=== PATIENT | female | born 1955 | race American Indian/Alaskan Native ===

== ENCOUNTER 2016-10-29 11:09 | Outpatient (CLI) | payer OTHER | END 2016-10-29 11:10 | disposition home or self-care (01) | DX: E11.65 Type 2 diabetes mellitus with hyperglycemia (principal) ==

== ENCOUNTER 2016-12-10 13:52 | Outpatient (CLI) | payer OTHER | END 2016-12-10 13:53 | disposition home or self-care (01) | DX: R30.0 Dysuria (principal) ==

== ENCOUNTER 2017-06-28 14:48 | Outpatient (CLI) | payer OTHER ==
[2017-06-28 13:19] LABS: BASOPHILS % (AUTO) 0.3 %; EOSINOPHILS # (AUTO) 0.3 10^3/uL (0.0-0.7); HCT - HEMATOCRIT 41.1 % (37.0-47.0); HGB - HEMOGLOBIN 13.5 g/dL (12.0-16.0); LYMPHOCYTES # (AUTO) 2.2 10^3/uL (1.5-3.5); MEAN CORPUSCULAR HEMOGLOBIN 30.3 pg (27.0-31.0); MEAN CORPUSCULAR HGB CONC 32.8 g/dL (32.0-36.0); MEAN CORPUSCULAR VOLUME 92.3 fL (81.0-99.0); MEAN PLATELET VOLUME 9.8 fL (7.9-10.8); MONOCYTES # (AUTO) 0.7 10^3/uL (0.0-1.0); NEUTROPHILS # (AUTO) 7.1 10^3/uL (1.5-6.6); NEUTROPHILS % (AUTO) 68.7 %; RED BLOOD COUNT 4.45 10^6/uL (4.20-5.40); RED CELL DISTRIBUTION WIDTH 13.1 % (12.0-15.0); UNCORRECTED WHITE BLOOD COUNT 10.3 x10^3/uL; WHITE BLOOD COUNT 10.3 x10^3/uL (4.8-10.8)
[2017-06-28 13:49] LABS: BILIRUBIN,TOTAL 0.9 mg/dL (0.2-1.0); BUN - BLOOD UREA NITROGEN 14 mg/dL (6-20); CALCIUM 8.7 mg/dL (8.5-10.3); CARBON DIOXIDE - CO2 24 mmol/L (21-32); CHLORIDE 102 mmol/L (101-111); CHOL/HDL RATIO 2.6 (<4.4); CHOLESTEROL 188 mg/dL; CREATININE 0.6 mg/dL (0.4-1.0); GFR - MDRD 102 (>89); GLUCOSE 287 mg/dL (70-100); HDL CHOLESTEROL 72 mg/dL; LDL/HDL RATIO 1.3 (<4.4); POTASSIUM 4.1 mmol/L (3.5-5.0); SODIUM 135 mmol/L (135-145); TOTAL PROTEIN 7.1 g/dL (6.7-8.2); TRIGLYCERIDES 131 mg/dL; VLDL CHOLESTEROL 26 mg/dL
[2017-06-28 14:08] LABS: HEMOGLOBIN A1C 1.52 g/dL
== END 2017-06-28 14:49 | disposition home or self-care (01) ==
LOC: LAB.WCP 14:48
PROVIDERS: ATTEND Family Medicine
DX: R30.0 Dysuria (principal); E11.65 Type 2 diabetes mellitus with hyperglycemia
CPT/HCPCS: 36415; 80053; 80061; 83036; 84443; 85025; 87077; 87086

== ENCOUNTER 2017-06-28 16:00 | Outpatient (CLI) | payer OTHER | END 2017-06-28 16:01 | disposition home or self-care (01) | LOC: LAB.R 16:00 | PROVIDERS: ATTEND Family Medicine | DX: R30.0 Dysuria (principal) | CPT/HCPCS: 87077; 87086 ==

== ENCOUNTER 2017-10-31 06:24 | Day surgery (SDC) | payer OTHER ==
[2017-10-31] MEDS ORDERED: LACTATED RINGERS 500 ML IV ONE (07:03)
[2017-10-31] MEDS ORDERED: KETOROLAC 0.45% OPHTH DROPS ONE (07:07)
[2017-10-31] MEDS ORDERED: PROPARACAINE 0.5% OPHTH DROPS 15 ML ONE (07:07)
[2017-10-31] MEDS: PHENYLEPHRINE 2.5% OPHTH 2 ML DROPS ONE ×4 (07:15→07:40)
[2017-10-31] MEDS: CYCLOPENTOLATE 1% OPHTH DROPS 2 ML ONE ×4 (07:15→07:40)
[2017-10-31] MEDS ORDERED: TIMOLOL 0.5% OPHTH DROPS ONE (07:17)
[2017-10-31] MEDS ORDERED: BRIMONIDINE 0.2% OPHTH DROPS 5 ML ONE (07:17)
[2017-10-31] MEDS ORDERED: MIDAZOLAM 2 MG/2 ML VIAL IVP ONE (08:41)
[2017-10-31] MEDS ORDERED: BRIMONIDINE 0.2% OPHTH DROPS 5 ML OPTH ONE (08:47)
[2017-10-31] MEDS ORDERED: TIMOLOL 0.5% OPHTH DROPS OPTH ONE (08:48)
[2017-10-31] MEDS ORDERED: BSS/LIDOCAINE/EPINEPHRINE 1 ML SYRINGE IO ONE (08:48)
[2017-10-31] MEDS ORDERED: EPINEPHrine 1 MG/ML AMP IVP ONE (08:48)
[2017-10-31] MEDS ORDERED: CHONDR SULF/HYALURONATE SYRINGE IO ONE (08:48)
[2017-10-31] MEDS ORDERED: PROPARACAINE 0.5% OPHTH DROPS 15 ML LEFTEYE ONE (08:49)
[2017-10-31] MEDS ORDERED: TRIAMCIN/MOXIFLOX/VANCO 1 ML VIAL IO ONE (08:49)
[2017-10-31 09:11] VITALS: BP 129/83
--- NOTE | 2017-10-31 09:21 | OPERATIVE REPORT ---
DATE OF SERVICE: 10/31/2017 Physician: Joseph Sommre MD DATE OF SURGERY: 10/31/2017 PREOPERATIVE DIAGNOSIS: Visually significant cataract, left eye. This was her first cataract surgery. POSTOPERATIVE DIAGNOSIS: Visually significant cataract, left eye. This was her first cataract surgery. NAME OF PROCEDURE: Phacoemulsification with posterior chamber intraocular lens implant, left eye. SURGEON: Joseph Sommer MD ANESTHESIA: Monitored anesthesia care. COMPLICATIONS: None. OPERATIVE INDICATIONS: This is a 62-year-old woman with progressive vision loss in the left eye due to 2+ nuclear sclerotic cataract. Best corrected visual acuity was 20/20 with glare to count fingers in the left eye. INDICATIONS FOR SURGERY: Overall decrease in vision, difficulty seeing words on the computer screen, difficulty reading; difficulty seeing words, closed caption or game scores on TV; difficulty seeing street signs, difficulty driving in low light or at night, difficulty driving at night because of headlight from other vehicles and/or street lights, and difficulty with glare or bright lights in any situation. She was consented at length concerning risks and benefits of cataract surgery, after which she expressed a desire to proceed with surgery. OPERATIVE PROCEDURE: The patient was taken into OR #3 and placed under monitored anesthesia care. A surgical timeout was conducted confirming correct patient, correct procedure, and correct surgical site. She was given topical anesthesia, and then prepped and draped in the usual sterile fashion. The eye was entered at the 6 and 3 o'clock positions. Intracameral Shugarcaine was injected into the anterior chamber, followed by Viscoat. A continuous-tear curvilinear capsulorrhexis was performed. The nucleus was hydrodissected and phacoemulsified. The cortex was evacuated using automated infusion and aspiration. Provisc was injected in the capsular bag, and a 21.0 diopter intraocular lens was inserted in the bag Approximately 0.7 mL of a mixture of triamcinolone, moxifloxacin, vancomycin was injected subconjunctivally in the superior quadrant for infection and inflammation prophylaxis. I and A, was used to evacuate the viscoelastic materials. The eye was inflated to physiologic pressure using balanced salt solution and found to be watertight. The patient was taken from the operating room in good condition and given postoperative instructions. TD: 10/31/2017 09:20
== END 2017-10-31 06:25 | disposition home or self-care (01) ==
LOC: SDS 06:24
PROVIDERS: ATTEND Ophthalmology
PROC: 08RK3JZ Replacement of Left Lens with Synthetic Substitute, Percutaneous Approach (ICD-10-PCS; principal; 2017-10-31 08:30)
DX: H25.12 Age-related nuclear cataract, left eye (principal); E11.9 Type 2 diabetes mellitus without complications; Z79.4 Long term (current) use of insulin
CPT/HCPCS: 66984; A9270; J3490; V2632

== ENCOUNTER 2017-11-14 05:53 | Day surgery (SDC) | payer OTHER ==
[2017-11-14] MEDS ORDERED: PHENYLEPHRINE 2.5% OPHTH 2 ML DROPS ONE (06:30)
[2017-11-14] MEDS ORDERED: CYCLOPENTOLATE 1% OPHTH DROPS 2 ML ONE (06:30)
[2017-11-14] MEDS ORDERED: KETOROLAC 0.45% OPHTH DROPS ONE (06:30)
[2017-11-14] MEDS ORDERED: PROPARACAINE 0.5% OPHTH DROPS 15 ML ONE ×3 (06:31→07:18)
[2017-11-14] MEDS ORDERED: KETOROLAC 0.45% OPHTH DROPS RIGHTEYE ONE (06:40)
[2017-11-14] MEDS ORDERED: PHENYLEPHRINE 2.5% OPHTH 2 ML DROPS RIGHTEYE ONE (06:40)
[2017-11-14] MEDS ORDERED: PROPARACAINE 0.5% OPHTH DROPS 15 ML RIGHTEYE ONE ×2 (06:40→07:42)
[2017-11-14] MEDS ORDERED: CYCLOPENTOLATE 1% OPHTH DROPS 2 ML RIGHTEYE ONE (06:40)
[2017-11-14] MEDS ORDERED: LACTATED RINGERS 1,000 ML IV ONE (06:51)
[2017-11-14] MEDS ORDERED: BRIMONIDINE 0.2% OPHTH DROPS 5 ML ONE (07:06)
[2017-11-14] MEDS ORDERED: BRIMONIDINE 0.1% OPHTH DROPS 5 ML ONE (07:06)
[2017-11-14] MEDS ORDERED: TIMOLOL 0.5% OPHTH DROPS ONE (07:07)
[2017-11-14] MEDS ORDERED: MIDAZOLAM 10 MG/2 ML VIAL IVP ONE (07:30)
[2017-11-14] MEDS ORDERED: MIDAZOLAM 2 MG/2 ML VIAL IVP ONE (07:30)
[2017-11-14] MEDS ORDERED: BRIMONIDINE 0.2% OPHTH DROPS 5 ML OPTH ONE (07:40)
[2017-11-14] MEDS ORDERED: EPINEPHrine 1 MG/ML AMP IVP ONE (07:40)
[2017-11-14] MEDS ORDERED: BSS/LIDOCAINE/EPINEPHRINE 1 ML SYRINGE IO ONE ×2 (07:41)
[2017-11-14] MEDS ORDERED: CHONDR SULF/HYALURONATE SYRINGE IO ONE (07:41)
[2017-11-14] MEDS ORDERED: TIMOLOL 0.5% OPHTH DROPS OPTH ONE (07:41)
[2017-11-14] MEDS ORDERED: TRIAMCIN/MOXIFLOX/VANCO 1 ML VIAL IO ONE ×2 (07:42)
[2017-11-14 07:54] VITALS: BP 136/93
--- NOTE | 2017-11-14 08:30 | OPERATIVE REPORT ---
DATE OF SERVICE: 11/14/2017 Physician: Joseph Sommer MD DATE OF SURGERY: 11/14/2017 PREOPERATIVE DIAGNOSIS: Visually significant cataract, right eye. Cataract surgery was performed on the left eye on 10/31/2017. POSTOPERATIVE DIAGNOSIS: Visually significant cataract, right eye. Cataract surgery was performed on the left eye on 10/31/2017. NAME OF PROCEDURE: Phacoemulsification with posterior chamber intraocular lens implant, right eye. SURGEON: Joseph Sommer MD ANESTHESIA: Monitored anesthesia care. COMPLICATIONS: None. OPERATIVE INDICATIONS: This is a 62-year-old woman with progressive vision loss in the right eye due to 2+ nuclear sclerotic cataract. Best corrected visual acuity was 20/ 25 with count fingers with glare. INDICATIONS FOR SURGERY: Overall decrease in vision, difficulty reading; difficulty seeing words, closed caption games scores on TV; difficulty driving in low light or at night and difficulty with glare or bright lights in any situation. She was consented at length concerning risks and benefits of cataract surgery, after which she expressed a desire to proceed with surgery. OPERATIVE PROCEDURE: The patient was taken into OR #3 and placed under monitored anesthesia care. A surgical timeout was conducted confirming correct patient, correct procedure, and correct surgical site. She was given topical anesthesia, and prepped and draped in usual sterile fashion. The eye was entered at the 12 and 9 o'clock positions. Intracameral Shugarcaine was injected into the anterior chamber, followed by Viscoat. A continuous-tear curvilinear capsulorrhexis was performed. The nucleus was hydrodissected and phacoemulsified. The cortex was evacuated using automated infusion and aspiration (I&A). Provisc was injected in the capsular bag, and a 21.5 diopter intraocular lens was inserted in the bag. Approximately 0.8 mL of a mixture of triamcinolone, moxifloxacin, vancomycin was injected subconjunctivally in the superior quadrant for infection and inflammation prophylaxis. I&A was used to evacuate the viscoelastic materials. The eye was inflated to physiologic pressure using a balanced salt solution and found to be watertight. The patient was taken from the operating room in good condition and given postoperative instructions. TD: 11/14/2017 08:29 [facility]
== END 2017-11-14 05:54 | disposition home or self-care (01) ==
LOC: SDS 05:53
PROVIDERS: ATTEND Ophthalmology
PROC: 08RJ3JZ Replacement of Right Lens with Synthetic Substitute, Percutaneous Approach (ICD-10-PCS; principal; 2017-11-14 07:30)
DX: H25.11 Age-related nuclear cataract, right eye (principal); E11.9 Type 2 diabetes mellitus without complications
CPT/HCPCS: 66984; A9270; J3490; J7120; V2632

== ENCOUNTER 2018-03-14 15:32 | Outpatient (CLI) | payer OTHER ==
--- NOTE | 2018-03-17 15:58 | Mammography Report ---
Procedure Date: 03/14/2018 Accession Number: [id number] / [id number] Procedure: [facility] - Screening Mammo Dig Bilat CPT Code: FULL RESULT: EXAM: Screening Mammo Dig Bilat DATE: 03/14/2018 3:48 PM CLINICAL HISTORY: Mother with breast cancer. TECHNIQUE: Bilateral CC and MLO views were obtained. COMPARISON: 03/07/1716, 11/07/2012, 11/20/2011, and 01/20/2009. FINDINGS: There are scattered fibroglandular densities. 3 new calcifications are seen in the upper outer mid to posterior third of the right breast. No new microcalcifications on the left. No suspicious masses, skin thickening, or regions of architectural distortion are identified. IMPRESSION: New microcalcifications right breast for which magnification views are suggested. Negative left breast. RECOMMENDATION: Magnification views right breast. BIRADS CATEGORY BI-RADS 0 needs additional evaluation. STANDARD QUALIFYING STATEMENTS: 1. This examination was reviewed with the aid of Computer-Aided Detection (CAD). 2. A negative or benign imaging report should not delay biopsy if clinically suspicious findings are present. Consider surgical consultation if warrented. More than 5% of cancers are not identified by imaging. 3. Dense breasts may obscure an underlying neoplasm.
== END 2018-03-14 15:33 | disposition home or self-care (01) ==
LOC: DI 15:32
PROVIDERS: ATTEND Family Medicine
DX: Z12.31 Encounter for screening mammogram for malignant neoplasm of breast (principal); R92.0 Mammographic microcalcification found on diagnostic imaging of breast
CPT/HCPCS: 77067

== ENCOUNTER 2018-04-09 09:28 | Outpatient (CLI) | payer OTHER ==
--- NOTE | 2018-04-09 11:31 | Mammography Report ---
Procedure Date: 04/09/2018 Accession Number: [id number] / [id number] Procedure: [facility] - Diag Special Views Dig RT CPT Code: FULL RESULT: EXAM: Diag Special Views Dig RT DATE: 04/09/2018 10:00 AM CLINICAL HISTORY: Right breast calcifications TECHNIQUE: Right true lateral and spot magnification views COMPARISON: 03/14/2018, 05/16/2016, 11/07/2012, 11/20/2011 FINDINGS: The breasts demonstrate scattered fibroglandular densities bilaterally. The calcifications in question are predominantly coarse on spot magnification views, and appears similar to other calcifications in the right breast. IMPRESSION: Probable benign findings RECOMMENDATION: Diagnostic right mammogram in 6 months BIRADS CATEGORY 3: Probable benign findings STANDARD QUALIFYING STATEMENTS: 1. This examination was reviewed with the aid of Computer-Aided Detection (CAD). 2. A negative or benign imaging report should not delay biopsy if clinically suspicious findings are present. Consider surgical consultation if warrented. More than 5% of cancers are not identified by imaging. 3. Dense breasts may obscure an underlying neoplasm.
== END 2018-04-09 09:29 | disposition home or self-care (01) ==
LOC: DI 09:28
PROVIDERS: ATTEND Family Medicine
DX: R92.1 Mammographic calcification found on diagnostic imaging of breast (principal)

== ENCOUNTER 2018-06-06 09:50 | Outpatient (CLI) | payer OTHER ==
[2018-06-06 12:11] LABS: BASOPHILS % (AUTO) 0.1 %; EOSINOPHILS # (AUTO) 0.2 10^3/uL (0.0-0.7); HGB - HEMOGLOBIN 13.8 g/dL (12.0-16.0); LYMPHOCYTES # (AUTO) 1.3 10^3/uL (1.5-3.5); LYMPHOCYTES % (AUTO) 13.8 %; MEAN CORPUSCULAR HEMOGLOBIN 31.2 pg (27.0-31.0); MEAN CORPUSCULAR HGB CONC 33.3 g/dL (32.0-36.0); MEAN CORPUSCULAR VOLUME 93.8 fL (81.0-99.0); MEAN PLATELET VOLUME 9.5 fL (7.9-10.8); MONOCYTES # (AUTO) 0.6 10^3/uL (0.0-1.0); MONOCYTES % (AUTO) 6.6 %; NEUTROPHILS % (AUTO) 77.5 %; PLT - PLATELET COUNT 248 10^3/uL (130-450); RED BLOOD COUNT 4.43 10^6/uL (4.20-5.40); RED CELL DISTRIBUTION WIDTH 13.1 % (12.0-15.0); WHITE BLOOD COUNT 9.1 x10^3/uL (4.8-10.8)
[2018-06-06 12:35] LABS: ALBUMIN 4.1 g/dL (3.2-5.5); ALBUMIN/GLOBULIN RATIO 1.2 (1.0-2.2); ALKALINE PHOSPHATASE 84 IU/L (42-121); ALT ALANINE AMINOTRANSFERASE 28 IU/L (10-60); AST ASPARTATE AMINOTRANSFERASE 28 IU/L (10-42); BILIRUBIN,TOTAL 0.8 mg/dL (0.2-1.0); BUN - BLOOD UREA NITROGEN 20 mg/dL (6-20); CALCIUM 9.1 mg/dL (8.5-10.3); CARBON DIOXIDE - CO2 23 mmol/L (21-32); CHLORIDE 103 mmol/L (101-111); CHOL/HDL RATIO 2.9 (<4.4); CHOLESTEROL 235 mg/dL; CREATININE 0.9 mg/dL (0.4-1.0); GFR - MDRD 63 (>89); GLUCOSE 303 mg/dL (70-100); HDL CHOLESTEROL 80 mg/dL; LDL CHOLESTEROL,CALCULATED 106 mg/dL; LDL/HDL RATIO 1.3 (<4.4); SODIUM 136 mmol/L (135-145); TOTAL PROTEIN 7.4 g/dL (6.7-8.2); VLDL CHOLESTEROL 49 mg/dL
[2018-06-06 18:35] LABS: HB2 TOTAL 14.6 g/dL; HEMOGLOBIN A1C 1.04 g/dL; HEMOGLOBIN A1C % 8.7 % (4.6-6.2)
== END 2018-06-06 09:51 | disposition home or self-care (01) ==
LOC: LAB.WCP 09:50
PROVIDERS: ATTEND Family Medicine
DX: E11.65 Type 2 diabetes mellitus with hyperglycemia (principal)
CPT/HCPCS: 36415; 80053; 80061; 82043; 83036; 83721; 84443; 85025

== ENCOUNTER 2018-12-10 11:22 | Outpatient (CLI) | payer OTHER ==
[2018-12-10 19:14] LABS: BASOPHILS % (AUTO) 0.3 %; EOSINOPHILS # (AUTO) 0.1 10^3/uL (0.0-0.7); EOSINOPHILS % (AUTO) 1.6 %; HGB - HEMOGLOBIN 13.3 g/dL (12.0-16.0); LYMPHOCYTES # (AUTO) 1.5 10^3/uL (1.5-3.5); LYMPHOCYTES % (AUTO) 17.9 %; MEAN CORPUSCULAR HEMOGLOBIN 30.1 pg (27.0-31.0); MEAN CORPUSCULAR HGB CONC 31.8 g/dL (32.0-36.0); MEAN CORPUSCULAR VOLUME 94.8 fL (81.0-99.0); MEAN PLATELET VOLUME 9.5 fL (7.9-10.8); MONOCYTES # (AUTO) 0.5 10^3/uL (0.0-1.0); MONOCYTES % (AUTO) 6.3 %; NEUTROPHILS # (AUTO) 6.3 10^3/uL (1.5-6.6); NEUTROPHILS % (AUTO) 73.9 %; PLT - PLATELET COUNT 236 10^3/uL (130-450); RED BLOOD COUNT 4.42 10^6/uL (4.20-5.40); RED CELL DISTRIBUTION WIDTH 13.4 % (12.0-15.0); WHITE BLOOD COUNT 8.5 x10^3/uL (4.8-10.8)
[2018-12-10 19:16] LABS: ALBUMIN 4.1 g/dL (3.2-5.5); ALBUMIN/GLOBULIN RATIO 1.2 (1.0-2.2); ALKALINE PHOSPHATASE 77 IU/L (42-121); ALT ALANINE AMINOTRANSFERASE 28 IU/L (10-60); AST ASPARTATE AMINOTRANSFERASE 22 IU/L (10-42); BILIRUBIN,TOTAL 0.9 mg/dL (0.2-1.0); BUN - BLOOD UREA NITROGEN 18 mg/dL (6-20); CARBON DIOXIDE - CO2 24 mmol/L (21-32); CHLORIDE 106 mmol/L (101-111); CHOL/HDL RATIO 1.8 (<4.4); CHOLESTEROL 160 mg/dL; CREATININE 0.6 mg/dL (0.4-1.0); GFR - MDRD 101 (>89); GLUCOSE 209 mg/dL (70-100); HDL CHOLESTEROL 87 mg/dL; LDL CHOLESTEROL,CALCULATED 44 mg/dL; LDL/HDL RATIO 0.5 (<4.4); SODIUM 139 mmol/L (135-145); TOTAL PROTEIN 7.4 g/dL (6.7-8.2); VLDL CHOLESTEROL 29 mg/dL
[2018-12-10 19:18] LABS: HB2 TOTAL 14.9 g/dL; HEMOGLOBIN A1C 1.06 g/dL; HEMOGLOBIN A1C % 8.7 % (4.6-6.2)
[2018-12-10 20:03] LABS: CREATININE,URINE 152.3 mg/dL; MICROALBUM/CREATININE RATIO,UR 120.8 ug/mg (<30.0); MICROALBUMIN,URINE 18.4 mg/dL (0-300.0)
== END 2018-12-10 11:23 | disposition home or self-care (01) ==
LOC: LAB.WCP 11:22
PROVIDERS: ATTEND Family Medicine
DX: E11.8 Type 2 diabetes mellitus with unspecified complications (principal)
CPT/HCPCS: 36415; 80053; 80061; 82043; 82570; 83036; 83721; 85025

== ENCOUNTER 2018-12-23 09:34 | Outpatient (CLI) | payer OTHER ==
--- NOTE | 2018-12-23 13:09 | Mammography Report ---
Reason: 6 MO F/U - [facility] Procedure Date: 12/23/2018 Accession Number: [id number] / [id number] Procedure: [facility] - Diagnostic Dig RT CPT Code: FULL RESULT: EXAM: Diagnostic Dig RT DATE: 12/23/2018 10:25 AM CLINICAL HISTORY: Six-month follow-up imaging for a grouping of right breast calcifications. TECHNIQUE: Right breast CC and MLO images as well as ML images and magnified CC and magnified ML images are obtained. COMPARISON: 04/09/2018 through 11/07/2012. FINDINGS: The right breast demonstrates scattered fibroglandular densities. The predominantly coarse calcifications on spot magnification demonstrate probably benign interval evolution and increase in quantity. No suspicious mass or architectural distortion is identified on 2-D or 3-D imaging. IMPRESSION: Probable benign findings RECOMMENDATION: Recommend diagnostic right mammogram in 6 months. BIRADS CATEGORY 3 STANDARD QUALIFYING STATEMENTS: 1. This examination was not reviewed with the aid of Computer-Aided Detection (CAD). 2. A negative or benign imaging report should not delay biopsy if clinically suspicious findings are present. Consider surgical consultation if warrented. More than 5% of cancers are not identified by imaging. 3. Dense breasts may obscure an underlying neoplasm. 4. This examination was reviewed with the aid of 3D imaging (tomography).
== END 2018-12-23 09:35 | disposition home or self-care (01) ==
LOC: DI 09:34
PROVIDERS: ATTEND Family Medicine
DX: R92.8 Other abnormal and inconclusive findings on diagnostic imaging of breast (principal)

== ENCOUNTER 2019-02-11 09:09 | Outpatient (CLI) | payer OTHER | END 2019-02-11 09:10 | disposition home or self-care (01) | LOC: LAB.WCP 09:09 | PROVIDERS: ATTEND Family Medicine | DX: R22.1 Localized swelling, mass and lump, neck (principal) | CPT/HCPCS: 36415; 84443 ==

== ENCOUNTER 2019-03-12 08:09 | Outpatient (CLI) | payer OTHER | END 2019-03-12 08:10 | disposition home or self-care (01) | LOC: LAB.WCP 08:09 | PROVIDERS: ATTEND Family Medicine | DX: E11.8 Type 2 diabetes mellitus with unspecified complications (principal) | CPT/HCPCS: 81599; 83036 ==

== ENCOUNTER 2019-06-08 08:00 | Outpatient (CLI) | payer OTHER ==
[2019-06-08 12:23] LABS: ALBUMIN 4.2 g/dL (3.2-5.5); ALBUMIN/GLOBULIN RATIO 1.2 (1.0-2.2); BILIRUBIN,TOTAL 0.5 mg/dL (0.2-1.0); CALCIUM 9.9 mg/dL (8.5-10.3); CREATININE 0.7 mg/dL (0.4-1.0); TOTAL PROTEIN 7.8 g/dL (6.7-8.2)
[2019-06-08 12:59] LABS: HB2 TOTAL 14.6 g/dL; HEMOGLOBIN A1C 0.95 g/dL; HEMOGLOBIN A1C % 8.1 % (4.6-6.2)
[2019-06-09 11:08] LABS: HEPATITIS C ANTIBODY NON-REACTIVE (NON-REACTIVE)
== END 2019-06-08 23:59 | disposition home or self-care (01) ==
LOC: LAB.WCP 08:00
PROVIDERS: ATTEND Family Medicine
DX: Z11.59 Encounter for screening for other viral diseases (principal); E11.65 Type 2 diabetes mellitus with hyperglycemia
CPT/HCPCS: 36415; 80053; 83036; 86803

== ENCOUNTER 2019-06-17 10:42 | Outpatient (CLI) | payer OTHER ==
--- NOTE | 2019-06-17 13:41 | Mammography Report ---
Reason: 6 MONTH FOLLOW UP RIGHT BREAST/ ANNUAL Procedure Date: 06/17/2019 Accession Number: [id number] / [id number] Procedure: [facility] - Diagnostic Dig Bilat CPT Code: FULL RESULT: EXAM: Diagnostic Dig Bilat DATE: 06/17/2019 12:10 PM CLINICAL HISTORY: Follow-up calcifications right breast, screening left breast TECHNIQUE: (B) - Bilateral CC and MLO views were obtained. COMPARISON: 12/23/2018, 04/09/2018, 03/14/2018 and 05/16/2016 PARENCHYMAL PATTERN: (A) - The breasts demonstrate scattered fibroglandular densities bilaterally. FINDINGS: No significant interval change. On the right 3 groups of coarse calcifications appear similar to both 12/23/2018 and 04/09/2018. One of these clusters is dermal in location. There are no suspicious masses, skin thickening, new calcifications, or areas of distortion. IMPRESSION: Benign findings. BI-RADS category 2. RECOMMENDATION: (ANNUAL) - Recommend routine annual screening mammography. BI-RADS CATEGORY: (2) - Benign Findings. STANDARD QUALIFYING STATEMENTS: 1. This examination was not reviewed with the aid of Computer-Aided Detection (CAD). 2. A negative or benign imaging report should not preclude biopsy if clinically suspicious findings are present. 3. Dense breasts may obscure an underlying neoplasm. 4. This examination was reviewed without the aid of 3D breast imaging (tomosynthesis).
== END 2019-06-17 10:43 | disposition home or self-care (01) ==
LOC: DI 10:42
PROVIDERS: ATTEND Family Medicine
DX: R92.8 Other abnormal and inconclusive findings on diagnostic imaging of breast (principal)
CPT/HCPCS: 77066

== ENCOUNTER 2019-09-15 09:55 | Outpatient (CLI) | payer OTHER ==
[2019-09-15 14:45] LABS: ALBUMIN/GLOBULIN RATIO 1.1 (1.0-2.2); BILIRUBIN,TOTAL 0.8 mg/dL (0.2-1.0); CALCIUM 9.1 mg/dL (8.5-10.3); CREATININE 0.7 mg/dL (0.4-1.0); TOTAL PROTEIN 7.8 g/dL (6.7-8.2)
[2019-09-15 14:52] LABS: HB2 TOTAL 13.7 g/dL; HEMOGLOBIN A1C 1.06 g/dL; HEMOGLOBIN A1C % 9.2 % (4.6-6.2)
== END 2019-09-15 23:59 ==
LOC: LAB.WCP 09:55
PROVIDERS: ATTEND Family Medicine
DX: E11.65 Type 2 diabetes mellitus with hyperglycemia (principal)
CPT/HCPCS: 36415; 80053; 83036

== ENCOUNTER 2019-10-07 20:06 | Emergency (ER) | payer OTHER ==
[2019-10-07] MEDS ORDERED: TETANUS/DIPHTHERIA/PERTUSSIS 0.5 ML SYRINGE IM ONE (20:13)
--- NOTE | 2019-10-07 20:16 | ED Physician Documentation ---
PD HPI WOUND RECHECK - Stated complaint Stated Complaint: FOOT INJURY - Chief complaint Chief Complaint: Wound - Histroy obtained from History obtained from: Patient - History of Present Illness Location: Right Lower Extremity (She stepped on a clean finishing nail indoors just prior to arrival while barefooted in her kitchen. Mostly here wanting a tetanus shot.) Review of Systems Constitutional: reports: Reviewed and negative Cardiac: reports: Reviewed and negative Respiratory: reports: Reviewed and negative PD PAST MEDICAL HISTORY - Past Medical History Cardiovascular: None Respiratory: None Endocrine/Autoimmune: Type 2 diabetes GI: None : None HEENT: None Psych: None Musculoskeletal: Other Derm: None - Past Surgical History General: Colonoscopy /[employer] PLASTERING: Hysterectomy HEENT: Cataracts - Present Medications Home Medications: Ambulatory Orders Medication Instructions Recorded Confirmed HYDROcod/ACETAM 5/325 [Vicodin 1 - 2 ea PO Q6H PRN 04/08/15 11/14/17 5/325] Insulin Glargine [Lantus Solostar] 12 unit SQ QPM 04/08/15 11/14/17 Insulin Lispro [Humalog Kwikpen] 12 unit SQ TIDWM 04/08/15 11/14/17 - Allergies Allergies/Adverse Reactions: Allergies Allergy/AdvReac Type Severity Reaction Status Date / Time metformin AdvReac Nausea Verified 10/07/19 20:09 - Social History Smoking Status: Former smoker PD ED PE NORMAL - Vitals Vital signs reviewed: Yes (htn) - General General: Alert and oriented X 3, No acute distress - Derm Derm: Normal color, Warm and dry - Neuro Neuro: Alert and oriented X 3, Normal speech - Psych Psych: Normal mood, Normal affect PD ED PE EXPANDED - Extremities Feet visual: 1 - laceration (Nontender tiny puncture wound, hemostatic) Results - Vitals Vitals: Vital Signs - 24 hr 10/07/19 20:09 Temperature 36.5 C Heart Rate 100 Respiratory 16 Rate Blood Pressure 172/84 H O2 Saturation 96 Oxygen O2 Source Room air Departure - Departure Disposition: 01 Home, Self Care Clinical Impression: Puncture wound of plantar aspect of foot Qualifiers: Encounter type: initial encounter Laterality: right Qualified Code(s): S91.331A - Puncture wound without foreign body, right foot, initial encounter Condition: Good Record reviewed to determine appropriate education?: Yes Instructions: ED Wound Puncture General Comments: Your blood pressure was elevated today on check into the emergency department. This does not mean that you have hypertension, it is a common phenomenon to come to the emergency department and have elevated blood pressure. I recommend that you see your primary care physician within the week to have it rechecked when you are feeling better.
[2019-10-07 20:46] VITALS: BP 146/86
== END 2019-10-07 20:46 | disposition home or self-care (01) ==
LOC: ED 20:06
DX: S91.331A Puncture wound without foreign body, right foot, initial encounter (principal); W45.0XXA Nail entering through skin, initial encounter; W22.8XXA Striking against or struck by other objects, initial encounter; Y92.000 Kitchen of unspecified non-institutional (private) residence as the place of occurrence of the external cause; Z23 Encounter for immunization; R03.0 Elevated blood-pressure reading, without diagnosis of hypertension; E11.9 Type 2 diabetes mellitus without complications; Z79.4 Long term (current) use of insulin; Z87.891 Personal history of nicotine dependence
CPT/HCPCS: 90471; 99282

== ENCOUNTER 2019-12-14 08:05 | Outpatient (CLI) | payer OTHER ==
[2019-12-14 08:01] LABS: MUDS CUTOFF CONCENTRATIONS CUTOFF CONC BELOW:
[2019-12-14 12:54] LABS: HB2 TOTAL 14.1 g/dL; HEMOGLOBIN A1C 0.86 g/dL; HEMOGLOBIN A1C % 7.7 % (4.6-6.2)
[2019-12-14 12:59] LABS: ALBUMIN 3.7 g/dL (3.2-5.5); ALKALINE PHOSPHATASE 93 IU/L (42-121); ALT ALANINE AMINOTRANSFERASE 21 IU/L (10-60); AST ASPARTATE AMINOTRANSFERASE 16 IU/L (10-42); BILIRUBIN,TOTAL 0.5 mg/dL (0.2-1.0); BUN - BLOOD UREA NITROGEN 22 mg/dL (6-20); CALCIUM 9.2 mg/dL (8.5-10.3); CARBON DIOXIDE - CO2 23 mmol/L (21-32); CHLORIDE 107 mmol/L (101-111); CHOL/HDL RATIO 2.4 (<4.4); CHOLESTEROL 207 mg/dL; CREATININE 0.6 mg/dL (0.4-1.0); GFR - MDRD 101 (>89); GLUCOSE 172 mg/dL (70-100); HDL CHOLESTEROL 87 mg/dL; LDL CHOLESTEROL,CALCULATED 93 mg/dL; LDL/HDL RATIO 1.1 (<4.4); SODIUM 140 mmol/L (135-145); TOTAL PROTEIN 7.4 g/dL (6.7-8.2); VLDL CHOLESTEROL 27 mg/dL
[2019-12-14 13:29] LABS: AMPHETAMINE SCREEN,URINE NEGATIVE (NEGATIVE); BENZODIAZEPINES SCREEN, URINE NEGATIVE (NEGATIVE); COCAINE SCREEN URINE NEGATIVE (NEGATIVE); METHADONE SCREEN, URINE NEGATIVE (NEGATIVE); METHAMPHETAMINES SCREEN, URINE NEGATIVE (NEGATIVE); OPIATE SCREEN, URINE NEGATIVE (NEGATIVE); OXYCODONE SCREEN, URINE NEGATIVE (NEGATIVE); PROPOXYPHENE SCREEN, URINE NEGATIVE (NEGATIVE); TRICYCLIC ANTIDEPRESSANT,URINE NEGATIVE (NEGATIVE)
== END 2019-12-14 23:59 | disposition home or self-care (01) ==
LOC: LAB.WCP 08:05
PROVIDERS: ATTEND Family Medicine
DX: E11.65 Type 2 diabetes mellitus with hyperglycemia (principal); Z79.891 Long term (current) use of opiate analgesic
CPT/HCPCS: 36415; 80053; 80061; 80306; 83036; 83721

== ENCOUNTER 2020-03-18 11:15 | Outpatient (CLI) | payer OTHER ==
[2020-03-18 18:04] LABS: BASOPHILS % (AUTO) 0.4 %; EOSINOPHILS # (AUTO) 0.2 10^3/uL (0.0-0.7); EOSINOPHILS % (AUTO) 2.2 %; HGB - HEMOGLOBIN 13.1 g/dL (12.0-16.0); LYMPHOCYTES # (AUTO) 1.6 10^3/uL (1.5-3.5); LYMPHOCYTES % (AUTO) 15.3 %; MEAN CORPUSCULAR HEMOGLOBIN 30.5 pg (27.0-31.0); MEAN CORPUSCULAR HGB CONC 31.8 g/dL (32.0-36.0); MEAN PLATELET VOLUME 11.8 fL (7.9-10.8); MONOCYTES % (AUTO) 9.6 %; NEUTROPHILS # (AUTO) 7.4 10^3/uL (1.5-6.6); PLT - PLATELET COUNT 192 10^3/uL (130-450); RED BLOOD COUNT 4.29 10^6/uL (4.20-5.40); RED CELL DISTRIBUTION WIDTH 13.2 % (12.0-15.0); WHITE BLOOD COUNT 10.3 x10^3/uL (4.8-10.8)
[2020-03-18 18:34] LABS: ALBUMIN 3.6 g/dL (3.2-5.5); ALKALINE PHOSPHATASE 94 IU/L (42-121); ALT ALANINE AMINOTRANSFERASE 22 IU/L (10-60); AST ASPARTATE AMINOTRANSFERASE 17 IU/L (10-42); BILIRUBIN,TOTAL 0.6 mg/dL (0.2-1.0); BUN - BLOOD UREA NITROGEN 28 mg/dL (6-20); CALCIUM 9.2 mg/dL (8.5-10.3); CARBON DIOXIDE - CO2 25 mmol/L (21-32); CHLORIDE 110 mmol/L (101-111); CHOLESTEROL 222 mg/dL; CREATININE 0.8 mg/dL (0.4-1.0); GLUCOSE 107 mg/dL (70-100); HDL CHOLESTEROL 74 mg/dL; LDL CHOLESTEROL,CALCULATED 105 mg/dL; LDL/HDL RATIO 1.4 (<4.4); SODIUM 141 mmol/L (135-145); TOTAL PROTEIN 7.2 g/dL (6.7-8.2); VLDL CHOLESTEROL 43 mg/dL
[2020-03-18 18:53] LABS: HB2 TOTAL 13.7 g/dL; HEMOGLOBIN A1C 0.91 g/dL; HEMOGLOBIN A1C % 8.2 % (4.6-6.2)
== END 2020-03-18 23:59 | disposition home or self-care (01) ==
LOC: LAB.WCP 11:15
PROVIDERS: ATTEND Family Medicine
DX: E11.65 Type 2 diabetes mellitus with hyperglycemia (principal)
CPT/HCPCS: 36415; 80053; 80061; 83036; 83721; 84443; 85025

== ENCOUNTER 2020-06-22 15:04 | Outpatient (CLI) | payer OTHER ==
[2020-06-22 18:36] LABS: BASOPHILS % (AUTO) 0.3 %; EOSINOPHILS # (AUTO) 0.2 10^3/uL (0.0-0.7); EOSINOPHILS % (AUTO) 2.2 %; LYMPHOCYTES # (AUTO) 1.7 10^3/uL (1.5-3.5); LYMPHOCYTES % (AUTO) 15.9 %; MEAN CORPUSCULAR HEMOGLOBIN 30.3 pg (27.0-31.0); MEAN CORPUSCULAR HGB CONC 32.2 g/dL (32.0-36.0); MEAN CORPUSCULAR VOLUME 94.2 fL (81.0-99.0); MEAN PLATELET VOLUME 11.3 fL (7.9-10.8); MONOCYTES # (AUTO) 0.8 10^3/uL (0.0-1.0); MONOCYTES % (AUTO) 7.8 %; NEUTROPHILS # (AUTO) 7.8 10^3/uL (1.5-6.6); NEUTROPHILS % (AUTO) 73.4 %; PLT - PLATELET COUNT 235 10^3/uL (130-450); RED BLOOD COUNT 4.62 10^6/uL (4.20-5.40); RED CELL DISTRIBUTION WIDTH 13.3 % (12.0-15.0); WHITE BLOOD COUNT 10.7 x10^3/uL (4.8-10.8)
[2020-06-22 18:50] LABS: ALBUMIN/GLOBULIN RATIO 1.1 (1.0-2.2); ALKALINE PHOSPHATASE 84 IU/L (42-121); ALT ALANINE AMINOTRANSFERASE 24 IU/L (10-60); AST ASPARTATE AMINOTRANSFERASE 21 IU/L (10-42); BUN - BLOOD UREA NITROGEN 15 mg/dL (6-20); CALCIUM 9.1 mg/dL (8.5-10.3); CARBON DIOXIDE - CO2 22 mmol/L (21-32); CHLORIDE 107 mmol/L (101-111); CHOL/HDL RATIO 2.6 (<4.4); CHOLESTEROL 201 mg/dL; CREATININE 0.8 mg/dL (0.4-1.0); GLUCOSE 125 mg/dL (70-100); HDL CHOLESTEROL 77 mg/dL; LDL CHOLESTEROL,CALCULATED 94 mg/dL; LDL/HDL RATIO 1.2 (<4.4); SODIUM 140 mmol/L (135-145); TOTAL PROTEIN 7.6 g/dL (6.7-8.2); VLDL CHOLESTEROL 30 mg/dL
[2020-06-22 19:33] LABS: CREATININE,URINE 247.9 mg/dL; MICROALBUM/CREATININE RATIO,UR 412.7 ug/mg (<30.0); MICROALBUMIN,URINE 102.3 mg/dL (0-300.0)
[2020-06-23 12:30] LABS: HEMOGLOBIN A1c% 8.3 % (4.27-6.07)
== END 2020-06-22 23:59 | disposition home or self-care (01) ==
LOC: LAB.WCP 15:04
PROVIDERS: ATTEND Family Medicine
DX: E11.65 Type 2 diabetes mellitus with hyperglycemia (principal)
CPT/HCPCS: 36415; 80053; 80061; 82043; 82570; 83036; 83721; 84443; 85025

== ENCOUNTER 2020-07-01 08:45 | Outpatient (CLI) | payer OTHER ==
--- NOTE | 2020-07-04 10:27 | Mammography Report ---
BILATERAL DIGITAL SCREENING MAMMOGRAM 3D/2D: 07/01/2020 CLINICAL: Family history of breast cancer. Routine screening. Comparison is made to exams dated: 06/17/2019 mammogram, 12/23/2018 mammogram, 03/14/2018 mammogram, mammogram, 11/07/2012 ultrasound, and 11/07/2012 mammogram - [facility]. The t issue of both breasts is predominantly fatty. There are benign calcifications in the right breast. No significant masses, calcifications, or other findings are seen in either breast. There has been no significant interval change. IMPRESSION: BENIGN There is no mammographic evidence of malignancy. A 1 year screening mammogram is recommended. This exam was interpreted at Station ID: [id number]. NOTE: For mammograms, a report in lay terms will be sent to the patient. Approximately 15% of breast malignancies will not be visualized mammographically. In the management of a palpable breast mass, a negative mammogram must not discourage biopsy of a clinically suspicious lesion. Electronically Signed By: Stacy grossman/carissa:07/01/2020 10:24:56 ACR BI-RADS Category 2: Benign Finding(s) 3342F PARENCHYMAL PATTERN: (F) - The breast(s) demonstrate(s) diffuse fatty replacement. BI-RADS CATEGORY: (2) - 2 RECOMMENDATION: (ANNUAL) - Recommend routine annual screening mammography. [id number] 1 year screening LATERALITY: (B)
== END 2020-07-01 08:46 | disposition home or self-care (01) ==
LOC: DI.N 08:45
DX: Z12.31 Encounter for screening mammogram for malignant neoplasm of breast (principal); Z80.3 Family history of malignant neoplasm of breast
CPT/HCPCS: 77063; 77067

== ENCOUNTER 2020-09-19 08:00 | Outpatient (CLI) | payer OTHER ==
[2020-09-19 20:27] LABS: HEMOGLOBIN A1c% 7.3 % (4.27-6.07)
--- OUTSIDE RECORDS SUMMARY | 2020-09-20 14:49 | EXTERNAL MEDICAL SUMMARY RPT | Continuity of Care Document ---
:1955 Demographics Phone Unavailable Preferred Language Ukrainian Marital Status Unknown Hinduism Affiliation Unknown Race Unknown Ethnic Group Unknown Author Organization [place] Address [address] [id number] Phone Care Team Providers Name Role Phone Agustina DEL CASTILLO, Unavailable Unavailable Agustina Shaw Unavailable Unavailable Problems date description facility Patient Education Finding 2009-11-22 00:00:00 Diabetes mellitus without mention [facility] of complication, type II or [address] unspecified type, not stated as uncontrolled 2009-11-22 00:00:00 Diabetes mellitus without mention [facility] of complication, type II or [address] unspecified type, uncontrolled 2009-11-22 00:00:00 Other and unspecified [facility] hyperlipidemia [address] 2009-11-22 00:00:00 Obesity, unspecified [facility] Pr imary Care [address] 2009-11-22 00:00:00 Hyperlipidemia, unspecified [facility] [address] 2009-11-22 00:00:00 Hypertensive disorder [facility] P rimary Care [address] 2009-11-22 00:00:00 Type II diabetes mellitus [facility] uncontrolled [address] 2009-11-22 00:00:00 Hyperlipidemia [facility] Prim devon Care [address] 2009-11-22 00:00:00 Unspecified essential hypertension [facility] 2009-11-22 00:00:00 Type 2 diabetes mellitus with [facility] hyperglycemia [facility] 2009-11-22 00:00:00 Type 2 diabetes mellitus without [facility] complications [facility] 2009-11-22 00:00:00 Essential (primary) hypertension [facility] 2009-11-22 00:00:00 Obesity [facility] Prim devon [facility] 2009-12-08 00:00:00 Polycythemia, secondary [facility] [address] 2009-12-08 00:00:00 [facility]the[facility] [address] 2009-12-08 00:00:00 Vitamin D deficiency, unspecified [facility] [address] 2009-12-08 00:00:00 Unspecified vitamin D [facility] [address] [facility] 2009-12-08 00:00:00 Erythrocytosis [facility] Prim devon [facility] 2009-12-08 00:00:00 Vitamin D deficiency [facility] 2009-12-22 00:00:00 Cervical radiculopathy [facility] [address] 2009-12-22 00:00:00 Brachial neuritis or radiculitis [facility] NOS [facility] 2009-12-22 00:00:00 Radiculopathy, cervical region [facility] [place] [facility] 2011-11-12 00:00:00 Pain in joint involving other [facility] Primary Care specified sites [address] 2011-11-12 00:00:00 Palmar fascial fibromatosis [facility] Primary Care [Dupuytren] [address] 2011-11-12 00:00:00 [facility] [address] 2011-11-12 00:00:00 Dupuytren's contracture [facility] [address] 2011-11-12 00:00:00 Epidermoid cyst of skin of scalp [facility] [address] 2011-11-12 00:00:00 Contracture of palmar fascia [facility] [place] [facility] 2011-11-12 00:00:00 Sebaceous cyst [facility] 2011-11-12 00:00:00 Corns and callosities [facility] P rimary [facility] 2011-11-12 00:00:00 Pain in unspecified joint [facility] Primary [facility] [address] [facility] 2012-05-08 00:00:00 Benign essential hypertension [facility] Primary Care [address] 2012-05-08 00:00:00 Essential (primary) hypertension [facility] [address] [facility] 2012-05-29 00:00:00 Sprain of unspecified site of [facility] wrist [address] 2012-05-29 00:00:00 Contusion of knee [facility] Care [address] 2012-05-29 00:00:00 Contusion of left knee [facility] [address] 2012-05-29 00:00:00 Sprain of wrist [facility] Prim devon [facility] [address] 2012-05-29 00:00:00 Unspecified sprain of left wrist, [facility] initial encounter [facility] 2012-05-30 00:00:00 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 2012-05-30 00:00:00 Other viral warts [facility] Prim devon Care [facility] 2012-05-30 00:00:00 Peripheral nerve disease [facility] 2012-05-30 00:00:00 Verruca plantaris [facility] 2012 00:00:00 Lump or mass in breast [facility] [address] 2012 00:00:00 Chronic pain syndrome [facility] 2012 00:00:00 Unspecified lump in breast [facility] 2012 00:00:00 Breast lump [facility] Prim devon Care [facility] 2013-05-25 00:00:00 [facility] [address] 2013-05-25 00:00:00 HGBA1C [facility] [address] 2013-05-25 00:00:00 LIPID PANEL [facility] 2013-05-25 00:00:00 Urine Microalbumin [facility] dev[facility] [address] 2013-05-25 00:00:00 TSH [facility] [address] 2013-05-25 09:07 DIAB DEEPA WO COMPL, TYPE II OR [facility] UNSPEC TYPE, NOT UNCNTRLD 2013-12-08 00:00:00 HGBA1C [facility] Prim devon Care [address] 2013-12-08 00:00:00 Alcohol intake [facility] Prim devon Care [address] 2013-12-08 00:00:00 Alcohol use [facility] Prim devon Care [address] 2013-12-08 00:00:00 BMP [facility] Prim devon [facility] [address] 2013-12-08 00:00:00 [facility]albumin [facility] [address] 2013-12-24 00:00:00 Proliferative diabetic retinopathy [facility] Primary Care [address] 2013-12-24 00:00:00 Proliferative retinopathy with [facility] Primary Care diabetes mellitus [address] 2013-12-24 00:00:00 Diabetes mellitus with ophthalmic [facility] Primary Care manifestations, type II or [address] unspecified type, not stated as uncontrolled 2013-12-24 00:00:00 Type 2 diabetes mellitus with [facility] Primary Care proliferative diabetic retinopathy [address] without macular edema 2013-12-24 00:00:00 Proliferative retinopathy due to [facility] Primary Care diabetes mellitus [address] 2014-02-23 10:43 DIAB DEEPA WO COMPL, TYPE II OR [facility] UNSPEC TYPE, NOT UNCNTRLD 2014-05-25 00:00:00 Former smoker [facility] devon Care [address] 2014-07-05 00:00:00 LIPIDS [facility] devon Care [address] 2014-07-05 00:00:00 HGBA1C [facility] Prim devon Care [address] 2014-07-05 00:00:00 BMP [facility] 2014-07-05 00:00:00 CBCDP [facility] dev[facility] 2014-07-05 00:00:00 Former smoker [facility] 2014-09-13 00:00:00 Neck sprain [facility] Prim devon Care [address] 2014-09-13 00:00:00 Contusion of finger [facility] Loretta myrna Care [address] 2014-09-13 00:00:00 Strain of muscle, fascia and [facility] tendon at neck level [address] 2014-09-13 00:00:00 Subungual hematoma [facility] Prim devon Care [address] 2014-09-13 00:00:00 Former smoker [facility] Prim devon Care [address] 2014-09-13 00:00:00 Other nail disorders [facility] Pr [facility]ary [facility] 2014-09-13 00:00:00 Strain of neck muscle [facility] 2014-11-19 00:00:00 Obesity [facility] Prim devon Care [address] 2014-11-19 00:00:00 Former smoker [facility] Prim devon Care [address] 2014-11-19 00:00:00 Obesity, unspecified [facility] Pr [facility] 2014-12-24 00:00:00 Acute bronchitis [facility] Prim devon Care [address] 2014-12-24 00:00:00 CXR 2 VIEWS PA&LAT [facility] Prim devon Care [address] 2014-12-24 00:00:00 Acute bronchitis with bronchospasm [facility] [address] 2014-12-24 00:00:00 Former smoker [facility] Prim devon Care [address] 2014-12-24 00:00:00 Acute bronchitis, [facility] 2015-01-24 00:00:00 BMP [facility] Prim devon Care [address] 2015-01-24 00:00:00 LIPIDS [facility]on [facility] 2015-01-24 00:00:00 HGBA1C [facility] devon [facility] [facility] 2015-01-24 00:00:00 CBCDP [facility] devon [facility] 2015-02-11 00:00:00 Former smoker [facility] [address] 2015-02-11 16:52 DIAB DEEPA WO COMPL, TYPE II OR [facility] UNSPEC TYPE, NOT UNCNTRLD 2015-02-11 16:52 HYPERLIPIDEMIA NEC/NOS [facility] 2015-02-11 16:52 SECONDARY POLYCYTHEMIA [facility] 2015-05-24 00:00:00 BMP [facility] Care [address] 2015-05-24 00:00:00 LIPIDS [facility] [address] 2015-05-24 00:00:00 HGBA1C [place] [facility] [address] 2015-05-26 08:15 DIAB DEEPA WO COMPL, TYPE II OR [facility] UNSPEC TYPE, UNCONTROLLED 2015-06-03 00:00:00 Tobacco use and exposure [facility] Primary Care [address] 2015-06-03 00:00:00 Tobacco smoking status NHIS [facility] [address] 2015-06-03 00:00:00 Former sm[facility] [place] [facility] 2015-08-01 00:00:00 Fracture of metatarsal bone(s), [facility] Primary Care closed [address] 2015-08-01 00:00:00 Unspecified site of foot sprain [facility] Primary Care [address] 2015-08-01 00:00:00 Foot [facility]V [facility] [address] 2015-08-01 00:00:00 Physical Therapy [facility] [address] 2015-08-01 00:00:00 Displaced fracture of second [place] [facility] metatarsal bone, left foot [address] 2015-08-01 00:00:00 Sprain of foot [facility] [address] 2015-08-01 00:00:00 Former smoker [facility] [address] 2015-08-01 00:00:00 Fracture of unspecified metatarsal [facility] Primary Care bone(s), unspecified foot, initial [facility] encounter for closed fracture 2015-08-01 00:00:00 Unspecified sprain of left foot [facility] [address] [facility] 2015-08-01 00:00:00 Closed fracture of second [facility] metatarsal bone of left foot [address] [facility] 2015-08-02 00:00:00 Podiatry Consultation [facility] [address] 2015-08-06 00:00:00 Urine C&S [facility] [address] 2015-08-06 00:00:00 Type 2 diabetes mellitus with [facility] Primary Care other diabetic ophthalmic [place] [facility] complication 2015-08-06 00:00:00 Blood in urine [facility] [address] 2015-08-06 00:00:00 Diabetic oculopathy associated [facility] Primary Care with type 2 diabetes mellitus [address] [place] 2015-08-06 00:00:00 Diabetes mellitus with ophthalmic [facility] Primary Care manifestations, type II or [address] [facility] unspecified type, uncontrolled 2015-08-06 00:00:[facility] 2015-08-06 00:00:00 Dysuria [facility] 2015-08-06 00:00:00 Disorder of eye due to type 2 [facility] Primary Care diabetes mellitus [address] [facility] 2015-08-06 00:00:00 Disorder of eye with type 2 [facility] Primary Care diabetes mellitus [address] [facility] 2015-08-30 00:00:00 [facility] [address] 2015-08-30 00:00:00 BMP [facility] 2015-08-30 00:00:00 [facility]albumin [facility] 2015-09-06 00:00:00 Foot [facility] [address] 2015-09-06 00:00:00 Alcohol [facility] [address] 2015-09-06 00:00:00 Health-related behavior [facility] Primary Care [address] 2015-09-06 00:00:00 Tobacco use and exposure [facility] [address] 2015-09-06 00:00:[address] [facility] [address] 2015-09-06 00:00:00 Alcohol use [facility] [address] 2015-09-06 00:00:00 Tobacco smoking status MSSANDRA Hines [facility] Primary Care [address] 2015-09-06 00:00:00 Details of drug misuse behavior [facility] [address] 2015-09-06 00:00:00 [facility] [address] 2015-09-06 16:55 TYPE 2 DIABETES MELLITUS WITH [facility] HYPERGLYCEMIA 2015-10-20 00:00:00 Alcohol intake [facility] [address] 2015-10-20 00:00:00 Tobacco use and exposure [facility] [address] 2015-10-20 00:00:[address] [facility] [address] 2015-10-20 00:00:00 Metatarsal bone fracture [facility] Primary Care [address] 2015-10-20 00:00:00 [facility] [address] 2015-10-20 00:00:00 Foot 3V [place] [facility] 2015-10-20 00:00:00 Displaced fracture of second [facility] Primary Care metatarsal bone, left foot, [facility] subsequent encounter for fracture with delayed healing 2015-10-20 00:00:00 Health-related behavior [facility] [address] 2015-10-20 00:00:00 Details of drug misuse behavior [facility] [address] 2015-10-20 00:00:00 Tobacco smoking status MSSANDRA Hines [facility] Primary Care [address] 2015-10-20 00:00:00 Former smoker [place] [facility] [address] 2015-11-01 00:00:00 DM [facility] [address] 2015-11-01 00:00:00 [facility] [address] 2015-11-01 00:00:00 Health-related behavior [facility] [address] 2015-11-01 00:00:00 Tobacco use and exposure [facility] [address] 2015-11-01 00:00:00 Exercise [facility] [address] 2015-11-01 00:00:00 Alcohol [facility] [address] 2015-11-01 00:00:00 Tobacco smoking status NHIS [facility] [address] 2015-11-01 00:00:00 Details of drug misuse behavior [facility] [place] [facility] 2015-11-01 00:00:00 Former smoker [facility] 2015-12-13 00:00:00 Alcohol intake [facility] [address] 2015-12-13 00:00:[address] [facility] [address] 2015-12-13 00:00:00 Details of drug misuse behavior [facility] [address] 2015-12-13 00:00:00 [facility] [address] 2015-12-13 00:00:00 HGBA1C [place] [facility] 2015-12-13 00:00:00 Health-related behavior [facility] [place] [facility] 2015-12-13 00:00:00 Tobacco use and exposure [facility] Primary [facility] [place] [facility] 2015-12-13 00:00:00 Alcohol use [facility] 2015-12-13 00:00:00 Tobacco smoking status NHIS [facility] [place] [facility] 2015-12-21 00:00:00 custodial (current) use of [facility] [address] 2015-12-21 00:00:00 Long-term current use of insulin [facility] [address] 2015-12-21 00:00:00 Long-term (current) use of insulin [facility] [place] [facility] 2016-01-13 00:00:00 Alcohol [facility] Prim devon Care [address] 2016-01-13 00:00:00 Health-related behavior [facility] [address] 2016-01-13 00:00:00 Exercise [facility] Prim devon Care [address] 2016-01-13 00:00:00 Details of drug misuse behavior idb [facility] Primary Care [address] 2016-01-13 00:00:00 Former smoker [facility] Prim devon Care [address] 2016-01-13 00:00:00 Tobacco use and exposure [facility] [place] [facility] 2016-01-13 00:00:00 Alcohol use [facility] Prim devon Care [address] [facility] 2016-01-13 00:00:00 Tobacco smoking status NHIS id[facility]He [facility] Primary Care [address] 2016-03-16 00:00:00 Diabetes mellitus without mention [facility] Primary Care of complication, type II or [address] unspecified type, uncontrolled 2016-03-16 00:00:00 BMP [facility] Prim devon Care [address] 2016-03-16 00:00:00 Acupuncture [facility] Prim devon Care [address] 2016-03-16 00:00:00 Type 2 diabetes mellitus with [facility] Primary Care hyperglycemia [address] 2016-03-16 00:00:00 Pain in right knee [facility] devon Care [address] 2016-03-16 00:00:00 Pain [facility] left [facility] Prim devon Care [address] 2016-03-16 00:00:00 Pain in left hand [facility] Prim devon Care [address] 2016-03-16 00:00:00 Alcohol intake [facility] Prim devon Care [address] 2016-03-16 00:00:00 Tobacco use and exposure [facility] Primary Care [address] 2016-03-16 00:00:00 Knee pain [facility] Prim devon Care [address] 2016-03-16 00:00:00 Details of drug misuse behavior idb [facility] Primary Care [address] 2016-03-16 00:00:00 Hand pain [facility] Prim devon Care [address] 2016-03-16 00:00:00 Tobacco smoking status NHIS [facility] [address] 2016-03-16 00:00:00 Former smoker [facility] [place] [facility] 2016-03-16 00:00:00 Macular degeneration (senile) of [facility] retina, unspecified [facility] 2016-03-16 00:00:00 Pain in joint involving lower leg [facility] [place] [facility] 2016-03-16 00:00:00 Pain in limb [facility] Prim devon Care [facility] 2016-03-16 00:00:00 HGBA1C [facility] Prim devon Care [facility] 2016-03-16 00:00:00 Unspecified macular degeneration [facility] Primary Care [facility] 2016-03-16 00:00:00 Pain in right hand [facility] Prim devon Care [facility] 2016-03-16 00:00:00 Pain in unspecified hand [facility] Primary Care [facility] 2016-03-16 00:00:00 Health-related behavior [facility] 2016-03-16 00:00:00 Exercise [facility] Prim devon Care [facility] 2016-03-16 00:00:00 Degenerative disorder of macula [facility] [place] [facility] 2016-03-16 00:00:00 Type II diabetes mellitus [facility] Primary Care uncontrolled [facility] 2016-03-16 00:00:00 Alcohol use [facility] Prim devon [facility] 2016-03-16 08:00 TYPE 2 DIABETES MELLITUS WITH [facility] HYPERGLYCEMIA 2016-04-20 00:00:00 Alcohol intake [facility] Prim devon Care [address] 2016-04-20 00:00:00 Screening mammography [facility] [place] [facility] 2016-04-20 00:00:00 Alcohol use [facility] Prim devon Care [address] 2016-04-20 00:00:00 Other [facility]:00:00 MAMMOGRAPHY BILATERAL, SCREENING [facility] [place] [facility] 2016-04-20 00:00:00 Encounter for screening mammogram [facility] for malignant neoplasm of breast [address] 2016-04-20 00:00:00 Tobacco use and exposure [facility] [place] [facility] 2016-04-20 00:00:00 Exercise [facility] Prim devon Care [place] [facility] 2016-04-20 00:00:00 Details of drug misuse behavior [facility] [place] [facility] 2016-04-20 00:00:00 Tobacco smoking status NHIS [facility] [place] [facility] 2016-04-20 00:00:00 Former sm[facility] 2016-04-20 08:00 TYPE 2 DIABETES [facility]LLITUS WITH [facility] HYPERGLYCEMIA 2016-05-16 08:06 ENCNTR SCREEN MAMMOGRAM FOR [facility] MALIGNANT NEOPLASM OF BREAST 2016-05-16 08:06 FAMILY HISTORY OF MALIGNANT [facility] NEOPLASM OF BREAST 2016-07-18 00:00:00 Anxiety state, unspecified [facility] [address] 2016-07-18 00:00:00 Microalbumin [facility] Prim devon [facility] [address] 2016-07-18 00:00:00 Alcohol intake [facility] Prim devon [facility] [address] 2016-07-18 00:00:00 Health-related behavior [facility] Care [address] 2016-07-18 00:00:00 Tobacco use and exposure [facility] [address] 2016-07-18 00:00:00 Details of drug misuse behavior [facility] [address] 2016-07-18 00:00:00 Anxiety [facility] Prim devon Care [address] 2016-07-18 00:00:00 Tobacco smoking status NHIS [facility] [address] 2016-07-18 00:00:00 Former smoker [facility] Prim devon Care [address] 2016-07-18 00:00:00 BMP [facility] Prim devon [facility] [place] [facility] 2016-07-18 00:00:00 HGBA1C [facility]on [facility] [place] [facility] 2016-07-18 00:00:00 Anxiety disorder, unspecified [facility] [place] [facility] 2016-07-18 00:00:00 Exercise [facility] Prim devon [facility] [place] [facility] 2016-07-18 00:00:00 Alcohol use [facility] [place] [facility] 2016-07-18 16:15 TYPE 2 DIABETES [facility]LL[facility]US WITH [facility] HYPERGLYCEMIA 2016-07-24 00:00:00 Endocrinology Consultation [facility] Primary Care [address] 2016-10-29 00:00 TYPE 2 DIABETES MELLITUS WITH [facility] HYPERGLYCEMIA 2016-10-29 00:00:00 [facility] [address] 2016-10-29 00:00:00 Alcohol intake [facility] [address] 2016-10-29 00:00:00 Exercise [facility] dev[facility] Care [address] 2016-10-29 00:00:00 Details of drug misuse behavior idb [facility] Primary Care [address] 2016-10-29 00:00:00 [facility] Prim devon Care [address] 2016-10-29 00:00:00 BMP [facility] [address] 2016-10-29 00:00:00 LIPIDS [facility] dev[facility] Care [address] 2016-10-29 00:00:00 HGBA1C [facility] dev[facility] [address] 2016-10-29 00:00:00 Health-related behavior [facility] [address] 2016-10-29 00:00:00 [facility] [address] [facility] 2016-10-29 00:00:00 Alcohol use [facility] [address] [facility] 2016-10-29 00:00:00 Tobacco smoking status NHIS [place] [facility] [address] [facility] 2016-10-29 11:09 TYPE 2 DIABETES MELLITUS WITH [facility] HYPERGLYCEMIA 2016-12-10 00:00 DYSURIA [facility] Center 2016-12-10 00:00:00 Urinary tract infection, site not Whi [facility] Primary Care specified [address] 2016-12-10 00:00:00 Alcohol intake [facility] [place] devon Care [address] 2016-12-10 00:00:00 Tobacco use and exposure [facility] Primary Care [address] 2016-12-10 00:00:[address] [facility] [address] 2016-12-10 00:00:00 Alcohol use idbeyMaria Parham Healthy [facility] [address] 2016-12-10 00:00:00 Urine C&S [place] [facility] 2016-12-10 00:00:00 Health-related behavior [place] [facility] [address] [facility] 2016-12-10 00:00:00 Details of drug misuse behavior [place] [facility] Primary Care [address] [facility] 2016-12-10 00:00:00 Urinary tract infectious disease id [facility] Primary Care [address] [facility] 2016-12-10 00:00:00 Tobacco smoking status [facility] [address] [facility] 2016-12-10 00:00:00 [facility] [address] [facility] 2016-12-10 13:52 DYSURIA [place] [facility] 2017-04-12 00:00:00 CHEST 2 VIEW [place] [facility] [address] 2017-04-12 00:00:[address] [facility] [facility] [address] 2017-04-12 00:00:00 Alcohol intake idbeyMaria Parham Healthy Care [address] 2017-04-12 00:00:00 Health-related behavior [facility] [address] 2017-04-12 00:00:00 Tobacco use and exposure [facility]alt h Primary Care [address] 2017-04-12 00:00:00 Details of drug misuse behavior [place] [facility] [address] 2017-04-12 00:00:00 Tobacco smoking status NHIS [facility] [address] 2017-04-12 00:00:00 [facility] [address] 2017-04-12 00:00:00 Exercise [place] [facility] 2017-04-12 00:00:00 Chronic cough [facility] 2017-04-12 00:00:00 [facility] 2017-04-23 00:00:00 TSH w/Reflex to Free T4, if needed [facility] Primary Care [address] 2017-04-23 00:00:00 CMP [facility] [address] 2017-04-23 00:00:00 CBC W/Diff/Plt [place] [facility] [address] 2017-04-23 00:00:00 Alcohol intake [facility] [address] 2017-04-23 00:00:00 Exercise [facility] [address] 2017-04-23 00:00:00 Details of drug misuse behavior [facility] Primary Care [address] 2017-04-23 00:00:00 [facility] [address] [facility] 2017-04-23 00:00:00 LIPIDS [facility]on [facility] 2017-04-23 00:00:00 HGBA1C [facility] 2017-04-23 00:00:00 Health-related behavior [facility] Primary Care [address] [facility] 2017-04-23 00:00:00 Tobacco use and exposure [facility] Primary Care [address] [facility] 2017-04-23 00:00:00 Alcohol use [facility] 2017-04-23 00:00:00 Tobacco smoking status NHIS [facility] Primary Care [address] [facility] 2017-06-28 00:00 TYPE 2 DIABETES MELLITUS WITH [facility] HYPERGLYCEMIA 2017-06-28 00:00 DYSURIA [facility] 2017-06-28 00:00:00 Alcohol intake [facility] [address] 2017-06-28 00:00:00 Endocrinology Consultation [facility] Primary Care [address] 2017-06-28 00:00:00 Alcohol use idbeyMaria Parham [facility] [address] 2017-06-28 00:00:00 Tobacco smoking status NHIS [facility] Primary Care [address] 2017-06-28 00:00:00 Urine C&S [place] [facility] 2017-06-28 00:00:00 Urinary tract infection, site not [facility] specified [address] [facility] 2017-06-28 00:00:00 [facility] [address] [facility] 2017-06-28 00:00:00 Tobacco use and exposure [facility] Primary Care [address] [facility] 2017-06-28 00:00:00 Exercise [facility] 2017-06-28 00:00:00 Details of drug misuse behavior [place] [facility] Primary Care [address] [facility] 2017-06-28 00:00:00 Urinary tract infectious disease id [facility] Primary Care [address] [facility] 2017-06-28 00:00:[address] [facility] 2017-06-28 14:48 TYPE 2 DIABETES MELLITUS WITH [facility] HYPERGLYCEMIA 2017-06-28 14:48 DYSURIA [facility] Medic al [place] 2017-06-28 16:00 DYSURIA [facility] al [place] 2017-07-24 00:00:00 Alcohol intake [facility] [address] [facility] 2017-07-24 00:00:00 Health-related behavior [place] [facility] [address] 2017-07-24 00:00:00 Tobacco use and exposure idbeyHealt h Primary Care [address] 2017-07-24 00:00:00 Endocrinology Consultation [facility] Primary Care [address] 2017-07-24 00:00:00 Details of drug misuse behavior [place] [facility] Primary Care [address] 2017-07-24 00:00:00 Tobacco smoking status NHIS [facility] Primary Care [address] 2017-07-24 00:00:00 Former smoker [facility] [address] 2017-07-24 00:00:[address] [facility] 2017-07-24 00:00:00 Alcohol use [facility] 2017-10-21 00:00:00 [facility] [address] 2017-10-21 00:00:00 Tobacco smoking status NHIS WhidbeyHe alth Primary Care [address] 2017-10-21 00:00:00 Health-related behavior [facility] [address] [facility] 2017-10-21 00:00:00 Tobacco use and exposure [facility] [address] [facility] 2017-10-21 00:00:00 Exercise [facility] 2017-10-21 00:00:00 Details of drug misuse behavior 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 [facility] 2017-11-14 05:53 TYPE 2 DIABETES MELLITUS WITHOUT [facility] COMPLICATIONS 2017-11-14 05:53 AGE-RELATED NUCLEAR CATARACT, [facility] RIGHT EYE 2017-12-19 23:50 Pelvic and [facility]ineal [facility] 2018-01-07 00:00:00 Long-term (current) use of other [facility] Primary Care medications [address] 2018-01-07 00:00:00 Corns and callosities [facility] [address] 2018-01-07 00:00:00 custodial (current) use of opiate [facility] Primary Care analgesic [address] 2018-01-07 00:00:00 Corns and callus [facility] devon Care [address] 2018-01-07 00:00:00 [facility]ocrinology Consultation [place] [facility] [address] 2018-01-07 00:00:00 Podiatry Consultation [place] [facility]bey[facility] P rimary Care [address] [facility] 2018-01-07 00:00:00 Little interest or pleasure in idbe [facility] Primary Care doing things? [address] [facility] 2018-01-07 00:00:00 Feeling down, depressed, or [facility]bey[facility] hopeless? [address] [facility] 2018-01-07 00:00:00 Alcohol use [facility] Prim devon [facility] [address] [facility] 2018-01-07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 [address] 2011-11-13 00:00:00 INSULIN GLARGINE [facility] [address] 2011-11-13 00:00:00 INSULIN GLARGINE [facility] [address] 2011-11-13 00:00:00 METFORMIN HCL [facility] [address] 2011-11-13 00:00:00 METFORMIN HCL [facility] [address] 2011-11-13 00:00:00 INSULIN GLARGINE [facility] [address] 2011-11-13 00:00:00 METFORMIN HCL [facility] [address] 2011-11-13 00:00:00 null [facility] [place] [facility] 2011-11-13 00:00:00 null [facility] [place] [facility] 2011-11-13 00:00:00 null [facility] [place] [facility] 2011-11-13 00:00:00 null [facility] [place] [facility] 2011-11-13 00:00:00 INSULIN GLARGINE [facility] [place] [facility] 2011-11-13 00:00:00 METFORMIN HCL [facility] [place] [facility] 2011-11-13 00:00:00 INSULIN GLARGINE [facility] [place] [facility] 2011-11-13 00:00:00 METFORMIN HCL [facility] [place] [facility] 2011-12-03 00:00:00 null [facility] [address] 2011-12-03 00:00:00 null [facility] [address] 2011-12-03 00:00:00 null [facility] [address] 2011-12-03 00:00:00 null [facility] [address] 2011-12-03 00:00:00 null [facility] [address] 2011-12-03 00:00:00 null [facility] [address] 2011-12-03 00:00:00 TRAMADOL HCL [facility] [address] 2011-12-03 00:00:00 TRAZODONE HCL [facility] Prim dveon [facility] [address] 2011-12-03 00:00:00 GLUCOSE BLOOD [facility] [address] 2011-12-03 00:00:00 GLUCOSE BLOOD [facility] [address] 2011-12-03 00:00:00 TRAZODONE HCL [facility] [address] 2011-12-03 00:00:00 TRAMADOL HCL [facility] [address] 2011-12-03 00:00:00 TRAMADOL HCL [facility] [address] 2011-12-03 00:00:00 TRAZODONE HCL [facility] [address] 2011-12-03 00:00:00 null [facility] [place] [facility] 2011-12-03 00:00:00 null [facility] [place] [facility] 2011-12-03 00:00:00 null [facility] [place] [facility] 2011-12-03 00:00:00 null [facility] [place] [facility] 2011-12-03 00:00:00 null [facility] [place] [facility] 2011-12-03 00:00:00 null [facility] [place] [facility] 2011-12-03 00:00:00 TRAMADOL HCL [facility] 2011-12-03 00:00:00 TRAZODONE HCL [facility] 2011-12-03 00:00:00 GLUCOSE BLOOD [facility] 2011-12-03 00:00:00 TRAMADOL HCL [facility] 2011-12-03 00:00:00 TRAZODONE HCL [facility] 2012-01-18 00:00:00 null [facility] [address] 2012-01-18 00:00:00 null [facility] [address] 2012-01-18 00:00:00 null [facility] [address] 2012-01-18 00:00:00 null [facility] [address] 2012-01-18 00:00:00 INSULIN GLARGINE [facility] [address] 2012-01-18 00:00:00 INSULIN GLARGINE [facility] [address] 2012-01-18 00:00:00 TRAMADOL HCL [facility] [address] 2012-01-18 00:00:00 TRAMADOL HCL [facility] [address] 2012-01-18 00:00:00 TRAMADOL HCL [facility] [address] 2012-01-18 00:00:00 INSULIN GLARGINE [facility] 2012-01-18 00:00:00 null [facility] 2012-01-18 00:00:00 null [facility] 2012-01-18 00:00:00 null [facility] 2012-01-18 00:00:00 null [facility] 2012-01-18 00:00:00 INSULIN GLARGINE [facility] 2012-01-18 00:00:00 TRAMADOL HCL [facility] 2012-01-18 00:00:00 TRAMADOL HCL [facility] 2012-01-18 00:00:00 INSULIN GLARGINE [facility] 2012-05-29 00:00:00 null [facility] [address] 2012-05-29 00:00:00 null [facility] [address] 2012-05-29 00:00:00 HYDROCODONE-ACETAMINOPHEN [facility] 2012-05-29 00:00:00 HYDROCODONE-ACETAMINOPHEN [facility] [address] 2012-05-29 00:00:00 HYDROCODONE-ACETAMINOPHEN [facility] [address] 2012-05-29 00:00:00 null [facility] 2012-05-29 00:00:00 null [facility] 2012-05-29 00:00:00 HYDROCODONE-ACETAMINOPHEN [facility] 2012-05-29 00:00:00 HYDROCODONE-ACETAMINOPHEN [facility] 2012-05-30 00:00:00 null [facility] [address] 2012-05-30 00:00:00 null [facility] [address] 2012-05-30 00:00:00 null [facility] [address] 2012-05-30 00:00:00 null [facility] [address] 2012-05-30 00:00:00 null [facility] [address] 2012-05-30 00:00:00 null [facility] [address] 2012-05-30 00:00:00 NORTRIPTYLINE HCL [facility] [address] 2012-05-30 00:00:00 EXENATIDE [facility] [address] 2012-05-30 00:00:00 GABAPENTIN [facility] [address] 2012-05-30 00:00:00 EXENATIDE [facility] [address] 2012-05-30 00:00:00 NORTRIPTYLINE HCL [facility] [address] 2012-05-30 00:00:00 GABAPENTIN [facility] 2012-05-30 00:00:00 NORTRIPTYLINE HCL [facility] [address] 2012-05-30 00:00:00 GABAPENTIN [facility] [address] 2012-05-30 00:00:00 EXENATIDE [facility] [address] 2012-05-30 00:00:00 null [facility] 2012-05-30 00:00:00 null [facility] 2012-05-30 00:00:00 null [facility] 2012-05-30 00:00:00 null [facility] 2012-05-30 00:00:00 null [facility] 2012-05-30 00:00:00 null [facility] 2012-05-30 00:00:00 NORTRIPTYLINE HCL [facility] 2012-05-30 00:00:00 EXENATIDE [facility] 2012-05-30 00:00:00 GABAPENTIN [facility] 2012-05-30 00:00:00 NORTRIPTYLINE HCL [facility] 2012-05-30 00:00:00 GABAPENTIN [facility] 2012-05-30 00:00:00 EXENATIDE [facility] 2012-08-29 00:00:00 null [facility] [address] 2012-08-29 00:00:00 null [facility] 2012-08-29 00:00:00 HYDROCODONE-ACETAMINOPHEN [facility] 2012-08-29 00:00:00 HYDROCODONE-ACETAMINOPHEN [facility] 2012-08-29 00:00:00 HYDROCODONE-ACETAMINOPHEN [facility] 2012-08-29 00:00:00 null [facility] 2012-08-29 00:00:00 null [facility] 2012-08-29 00:00:00 HYDROCODONE-ACETAMINOPHEN [facility] 2012-08-29 00:00:00 HYDROCODONE-ACETAMINOPHEN [facility] 2013-11-24 00:00:00 null [facility] 2013-11-24 00:00:00 null [facility] 2013-11-24 00:00:00 INSULIN PEN NEEDLE [facility] 2013-11-24 00:00:00 null [facility] 2013-11-24 00:00:00 null [facility] 2013-11-24 00:00:00 INSULIN PEN NEEDLE [facility] 2013-12-08 00:00:00 null [facility] [address] 2013-12-08 00:00:00 null [facility] [address] 2013-12-08 00:00:00 null [facility] 2013-12-08 00:00:00 null [facility] [address] 2013-12-08 00:00:00 INSULIN GLARGINE [facility] 2013-12-08 00:00:00 HYDROCODONE-ACETAMINOPHEN [facility] 2013-12-08 00:00:00 HYDROCODONE-ACETAMINOPHEN [facility] 2013-12-08 00:00:00 HYDROCODONE-ACETAMINOPHEN [facility] 2013-12-08 00:00:00 HYDROCODONE-ACETAMINOPHEN [facility] 2013-12-08 00:00:00 HYDROCODONE-ACETAMINOPHEN [facility] 2013-12-08 00:00:00 INSULIN GLARGINE [facility] 2013-12-08 00:00:00 INSULIN GLARGINE [facility] 2013-12-08 00:00:00 HYDROCODONE-ACETAMINOPHEN [facility] 2013-12-08 00:00:00 null [facility] 2013-12-08 00:00:00 null [facility] 2013-12-08 00:00:00 null [facility] 2013-12-08 00:00:00 null [facility] 2013-12-08 00:00:00 INSULIN GLARGINE [facility] 2013-12-08 00:00:00 HYDROCODONE-ACETAMINOPHEN [facility] 2013-12-08 00:00:00 INSULIN GLARGINE [facility] 2013-12-08 00:00:00 HYDROCODONE-ACETAMINOPHEN [facility] 2014-05-25 00:00:00 null [facility] [address] 2014-05-25 00:00:00 null [facility] [address] 2014-05-25 00:00:00 null [facility] 2014-05-25 00:00:00 null [facility] [address] 2014-05-25 00:00:00 INSULIN ISOPHANE HUMAN [facility] 2014-05-25 00:00:00 INSULIN ASPART [facility] 2014-05-25 00:00:00 INSULIN ASPART [facility] 2014-05-25 00:00:00 INSULIN ISOPHANE HUMAN [facility] [address] 2014-05-25 00:00:00 null [facility] 2014-05-25 00:00:00 null [facility] 2014-05-25 00:00:00 null [facility] 2014-05-25 00:00:00 null [facility] 2014-05-25 00:00:00 INSULIN ISOPHANE HUMAN [facility] [place] [facility] 2014-05-25 00:00:00 INSULIN ASPART [facility] [place] [facility] 2014-05-25 00:00:00 [facility]ULIN ASPART [facility] [place] [facility] 2014-05-25 00:00:00 [facility]HANE HUMAN [facility] [place] [facility] 2014-08-30 00:00:00 null [facility] [address] 2014-08-30 00:00:00 [facility] [address] 2014-08-30 00:00:00 INSULIN LISPRO (HUMAN) [facility] [address] 2014-08-30 00:00:00 INSULIN LISPRO (HUMAN) [facility] [address] 2014-08-30 00:00:00 INSULIN LISPRO (HUMAN) [facility] [address] 2014-08-30 00:00:00 null [facility] [place] [facility] 2014-08-30 00:00:00 null [facility] [place] [facility] 2014-08-30 00:00:00 null [facility] [place] [facility] 2014-08-30 00:00:00 INSULIN LISPRO (HUMAN) [facility] [place] [facility] 2014-08-30 00:00:00 INSULIN LISPRO (HUMAN) [facility] [place] [facility] 2014-09-13 00:00:00 [facility] 2014-09-13 00:00:00 [facility] 2014-09-13 00:00:00 CYCLOBENZAPRINE HCL [facility] [address] [address] 2014-09-13 00:00:00 CYCLOBENZAPRINE HCL [facility] [address] 2014-09-13 00:00:00 CYCLOBENZAPRINE HCL [facility] [address] 2014-09-13 00:00:00 null [facility] 2014-09-13 00:00:00 null [facility] 2014-09-13 00:00:00 CYCLOBENZAPRINE HCL [facility] 2014-09-13 00:00:00 CYCLOBENZAPRINE HCL [facility] 2014-11-19 00:00:00 null [facility] [address] 2014-11-19 00:00:00 null [facility] [address] 2014-11-19 00:00:00 null [facility] [address] 2014-11-19 00:00:00 null [facility] [address] 2014-11-19 00:00:00 PHENTERMINE HCL [facility] [address] 2014-11-19 00:00:00 METHOCARBAMOL [facility] [address] 2014-11-19 00:00:00 PHENTERMINE HCL [facility] [address] 2014-11-19 00:00:00 METHOCARBAMOL [facility] [address] 2014-11-19 00:00:00 METHOCARBAMOL [facility] [address] 2014-11-19 00:00:00 PHENTERMINE HCL [facility] [address] 2014-11-19 00:00:00 null [facility] 2014-11-19 00:00:00 null [facility] 2014-11-19 00:00:00 null [facility] 2014-11-19 00:00:00 null [facility] 2014-11-19 00:00:00 METHOCARBAMOL [facility] 2014-11-19 00:00:00 PHENTERMINE HCL [facility] 2014-11-19 00:00:00 METHOCARBAMOL [facility] 2014-11-19 00:00:00 PHENTERMINE HCL [facility] 2014-12-24 00:00:00 null [facility] [address] 2014-12-24 00:00:00 null [facility] 2014-12-24 00:00:00 ALBUTEROL SULFATE [facility] [address] 2014-12-24 00:00:00 ALBUTEROL SULFATE [facility] [address] 2014-12-24 00:00:00 ALBUTEROL SULFATE [facility] [address] 2014-12-24 00:00:00 null [facility] 2014-12-24 00:00:00 null [facility] 2014-12-24 00:00:00 ALBUTEROL SULFATE [facility] 2014-12-24 00:00:00 ALBUTEROL SULFATE [facility] 2015-02-11 00:00:00 null [facility] [address] 2015-02-11 00:00:00 null [facility] [address] 2015-02-11 00:00:00 LISINOPRIL [facility] [address] 2015-02-11 00:00:00 LISINOPRIL [facility] [address] 2015-02-11 00:00:00 LISINOPRIL [facility] [address] 2015-02-11 00:00:00 null [facility] 2015-02-11 00:00:00 null [facility] 2015-02-11 00:00:00 LISINOPRIL [facility] 2015-02-11 00:00:00 LISINOPRIL [facility] 2015-04-08 00:00:00 null 2015-04-08 00:00:00 Methocarbamol 500 MG Oral Tablet 2015-04-08 00:00:00 3 ML Insulin Glargine 100 UNT/ML Prefilled Syringe 2015-04-08 00:00:00 Acetaminophen 325 MG / Hydrocodone Bitartrate 5 MG Oral Tablet 2015-08-06 00:00:00 null [facility] [address] [address] 2015-08-06 00:00:00 null [facility] [address] 2015-08-06 00:00:00 SULFAMETHOXAZOLE-TRIMETHOPRIM [facility] [address] 2015-08-06 00:00:00 [facility] [address] 2015-08-06 00:00:[address] [facility] [address] 2015-08-06 00:00:00 SULFAMETHOXAZOLE-TRIMETHOPRIM [facility] [place] [facility] 2015-08-06 00:00:00 SULFAMETHOXAZOLE-TRIMETHOPRIM [facility] 2016-03-16 00:00:00 null [facility] [address] 2016-03-16 00:00:00 null [facility] [address] 2016-03-16 00:00:00 null [facility] [address] 2016-03-16 00:00:00 null [facility] [address] 2016-03-16 00:00:00 DAPAGLIFLOZIN PROPANEDIOL [facility] [address] 2016-03-16 00:00:[facility] [address] [facility] 2016-03-16 00:00:00 TRAZODONE HCL [facility] [address] 2016-03-16 00:00:00 DAPAGLIFLOZIN PROPANEDIOL [facility] [address] 2016-03-16 00:00:00 TRAZODONE HCL [facility] 2016-03-16 00:00:00 null [facility] 2016-03-16 00:00:00 null [facility] 2016-03-16 00:00:00 null [facility] 2016-03-16 00:00:00 null [facility] 2016-03-16 00:00:00 DAPAGLIFLOZIN PROPANEDIOL [facility] 2016-03-16 00:00:00 TRAZODONE HCL [facility] 2016-03-16 00:00:00 DAPAGLIFLOZIN PROPANEDIOL [facility] 2016-03-16 00:00:00 TRAZODONE HCL [facility] 2016-07-18 00:00:00 null [facility] [address] 2016-07-18 00:00:00 null [facility] [address] [address] 2016-07-18 00:00:00 SERTRALINE HCL [facility] [address] 2016-07-18 00:00:00 SERTRALINE HCL [facility] [address] 2016-07-18 00:00:00 null [facility] 2016-07-18 00:00:00 null [facility] 2016-07-18 00:00:00 SERTRALINE HCL [facility] 2016-07-18 00:00:00 SERTRALINE HCL [facility] 2016-12-10 00:00:00 null [facility] [address] 2016-12-10 00:00:00 null [facility] [address] [address] 2016-12-10 00:00:00 NITROFURANTOIN MONOHYD MACRO [facility] [address] 2016-12-10 00:00:00 NITROFURANTOIN MONOHYD MACRO [facility] [address] 2016-12-10 00:00:00 NITROFURANTOIN MONOHYD MACRO [facility] [address] 2016-12-10 00:00:00 null [facility] 2016-12-10 00:00:00 null [facility] 2016-12-10 00:00:00 null [facility] 2016-12-10 00:00:00 NITROFURANTOIN MONOHYD MACRO [facility] 2016-12-10 00:00:00 NITROFURANTOIN MONOHYD MACRO [facility] 2017-04-23 00:00:00 null [facility] [address] 2017-04-23 00:00:00 null [facility] [address] 2017-04-23 00:00:00 LOSARTAN POTASSIUM [facility] [address] 2017-04-23 00:00:00 LOSARTAN POTASSIUM [facility] [address] 2017-04-23 00:00:00 LOSARTAN POTASSIUM [facility] [address] 2017-04-23 00:00:00 null [facility] 2017-04-23 00:00:00 null [facility] 2017-04-23 00:00:00 LOSARTAN POTASSIUM [facility] 2017-04-23 00:00:00 LOSARTAN POTASSIUM [facility] 2017-05-17 00:00:00 null [facility] [address] 2017-05-17 00:00:00 null [facility] [address] 2017-05-17 00:00:00 INSULIN PEN NEEDLE [facility] [address] 2017-05-17 00:00:00 null [facility] 2017-05-17 00:00:00 null [facility] [place] [facility] 2017-05-17 00:00:00 INSULIN PEN NEEDLE [facility] 2017-06-28 00:00:00 null [facility] [address] 2017-06-28 00:00:00 null [facility] [address] 2017-06-28 00:00:00 NITROFURANTOIN MONOHYD MACRO [facility] [address] 2017-06-28 00:00:00 NITROFURANTOIN MONOHYD MACRO [facility] [address] 2017-06-28 00:00:00 NITROFURANTOIN MONOHYD MACRO [facility] [address] 2017-06-28 00:00:00 null [facility] [place] [facility] 2017-06-28 00:00:00 null [facility] [place] [facility] 2017-06-28 00:00:00 null [facility] [place] [facility] 2017-06-28 00:00:00 NITROFURANTOIN MONOHYD MACRO [place] [facility] [facility] 2017-06-28 00:00:00 NITROFURANTOIN MONOHYD MACRO [facility] [place] [facility] 2018-01-07 00:00:00 null [facility] [address] 2018-01-07 00:00:00 null [facility] [address] 2018-01-07 00:00:00 null [facility] [address] 2018-01-07 00:00:00 null [facility] [address] 2018-01-07 00:00:00 DULAGLUTIDE [facility] [address] 2018-01-07 00:00:00 GABAPENTIN [facility] [address] 2018-01-07 00:00:00 DULAGLUTIDE [facility] [address] 2018-01-07 00:00:00 GABAPENTIN [facility] [address] 2018-01-07 00:00:00 null [facility] 2018-01-07 00:00:00 null [facility] 2018-01-07 00:00:00 null [facility] 2018-01-07 00:00:00 null [facility] 2018-01-07 00:00:00 DULAGLUTIDE [facility] 2018-01-07 00:00:00 GABAPENTIN [facility] 2018-01-07 00:00:00 DULAGLUTIDE [facility] 2018-01-07 00:00:00 GABAPENTIN [facility] 2018-03-05 00:00:00 null [facility] [address] 2018-03-05 00:00:00 null [facility] [address] 2018-03-05 00:00:00 PRAVASTATIN SODIUM [facility] [address] 2018-03-05 00:00:00 PRAVASTATIN SODIUM [facility] [address] 2018-03-05 00:00:00 null [facility] 2018-03-05 00:00:00 null [facility] 2018-03-05 00:00:00 PRAVASTATIN SODIUM [facility] 2018-03-05 00:00:00 PRAVASTATIN SODIUM [facility] 2018-06-08 00:00:00 null [facility] [address] 2018-06-08 00:00:00 null [facility] [address] 2018-06-08 00:00:00 INSULIN LISPRO (HUMAN) [facility] [address] 2018-06-08 00:00:00 INSULIN LISPRO (HUMAN) [facility] [address] 2018-06-08 00:00:00 null [facility] 2018-06-08 00:00:00 null [facility] 2018-06-08 00:00:00 null [facility] 2018-06-08 00:00:00 INSULIN LISPRO (HUMAN) [facility] 2018-06-08 00:00:00 INSULIN LISPRO (HUMAN) [facility] 2018-06-30 00:00:00 null [facility] 2018-06-30 00:00:00 null [facility] 2018-06-30 00:00:00 INSULIN PEN NEEDLE [facility] 2018-08-15 00:00:00 null [facility] [address] 2018-08-15 00:00:00 null [facility] [address] 2018-08-15 00:00:00 GLUCOSE BLOOD [facility] [address] 2018-08-15 00:00:00 null [facility] 2018-08-15 00:00:00 null [facility] 2018-08-15 00:00:00 GLUCOSE BLOOD [facility] 2019-02-10 00:00:00 null [facility] 2019-02-10 00:00:00 null [facility] 2019-02-10 00:00:00 null [facility] 2019-02-10 00:00:00 INSULIN LISPRO [facility] 2019-02-10 00:00:00 INSULIN LISPRO [facility] 2019-03-12 00:00:00 null [facility] 2019-03-12 00:00:00 null [facility] 2019-03-12 00:00:00 DULAGLUTIDE [facility] 2019-03-12 00:00:00 DULAGLUTIDE [facility] 2019-09-15 00:00:00 null [facility] 2019-09-15 00:00:00 null [facility] 2019-09-15 00:00:00 CELECOXIB [facility] 2019-09-15 00:00:00 CELECOXIB [facility] 2019-09-24 00:00:00 null [facility] 2019-09-24 00:00:00 null [facility] 2019-09-24 00:00:00 DULAGLUTIDE [facility] 2019-09-24 00:00:00 DULAGLUTIDE [facility] 2019-10-07 00:00:00 null 2019-12-28 00:00:00 null [facility] 2019-12-28 00:00:00 null [facility] 2019-12-28 00:00:00 DULOXETINE HCL [facility] 2019-12-28 00:00:00 DULOXETINE HCL [facility] 2020-01-14 00:00:00 null [facility] 2020-01-14 00:00:00 null [facility] 2020-01-14 00:00:00 METHOCARBAMOL [facility] 2020-01-14 00:00:00 METHOCARBAMOL [facility] 2020-02-23 00:00:00 null [facility] 2020-02-23 00:00:00 null [facility] 2020-02-23 00:00:00 INSULIN PEN NEEDLE [facility] 2020-05-09 00:00:00 null [facility] 2020-05-09 00:00:00 null [facility] 2020-05-09 00:00:00 [facility] GLARGINE [facility] [facility] 2020-05-09 00:00:00 INSULIN GLARGINE [facility] 2020-05-10 00:00:00 null [facility] 2020-05-10 00:00:00 null [facility] 2020-05-10 00:00:00 METHOCARBAMOL [facility] 2020-05-10 00:00:00 METHOCARBAMOL [facility] 2020-06-22 00:00:00 null [facility] 2020-06-22 00:00:00 null [facility] 2020-06-22 00:00:00 PRAVASTATIN SODIUM [facility] 2020-06-22 00:00:00 PRAVASTATIN SODIUM [facility] Procedures date description facility 2011-12-11 00:00:00 SNOMED-CT [id number]: Procedure, [facility] Performed: [facility] date description facility 2011-12-11 00:00:00 [facility] date description facility 2013-05-25 00:00:00 BMP [facility] [address] date description facility 2013-05-25 00:00:00 LIPID PANEL [facility] [address] date description facility 2013-05-25 00:00:00 Urine Microalbumin [facility] [address] date description facility 2013-05-25 00:00:00 HGBA1C [facility] [address] date description facility 2013-05-25 00:00:00 TSH [facility] [address] date description facility 2013-05-25 00:00:00 [facility] [address] date description facility 2013-05-25 00:00:00 BMP [facility] date description facility 2013-05-25 00:00:00 LIPID PANEL [facility] date description facility 2013-05-25 00:00:00 Urine Microalbumin [facility] date description facility 2013-05-25 00:00:00 HGBA1C [facility] date description facility 2013-05-25 00:00:00 TSH [facility] date description facility 2013-05-25 00:00:00 [facility] date description facility 2013-12-08 00:00:00 BMP [facility] [address] date description facility 2013-12-08 00:00:00 Microalbumin [facility] [address] date description facility 2013-12-08 00:00:00 HGBA1C [facility] [address] date description facility 2013-12-08 00:00:00 [facility] [address] date description facility 2013-12-08 00:00:00 BMP [facility] date description facility 2013-12-08 00:00:00 Microalbumin [facility] date description facility 2013-12-08 00:00:00 HGBA1C [facility] date description facility 2013-12-08 00:00:00 [facility] date description facility 2014-07-05 00:00:00 BMP [facility] [address] date description facility 2014-07-05 00:00:00 LIPIDS [facility] [address] date description facility 2014-07-05 00:00:00 HGBA1C [facility] [address] date description facility 2014-07-05 00:00:00 CBCDP [facility] [address] date description facility 2014-07-05 00:00:00 [facility] [address] date description facility 2014-07-05 00:00:00 BMP [facility] date description facility 2014-07-05 00:00:00 LIPIDS [facility] date description facility 2014-07-05 00:00:00 HGBA1C [facility] date description facility 2014-07-05 00:00:00 CBCDP [facility] date description facility 2014-07-05 00:00:00 [facility] date description facility 2014-12-24 00:00:00 CXR 2 VIEWS PA&LAT [facility] [address] date description facility 2014-12-24 00:00:00 [facility] [address] date description facility 2014-12-24 00:00:00 CXR 2 VIEWS PA&LAT [facility] date description facility 2014-12-24 00:00:00 [facility] date description facility 2015-01-24 00:00:00 BMP [facility] date description facility 2015-01-24 00:00:00 LIPIDS [facility] date description facility 2015-01-24 00:00:00 HGBA1C [facility] date description facility 2015-01-24 00:00:00 CBCDP [facility] date description facility 2015-01-24 00:00:00 [facility] date description facility 2015-01-24 00:00:00 BMP [facility] date description facility 2015-01-24 00:00:00 LIPIDS [facility] date description facility 2015-01-24 00:00:00 HGBA1C [facility] date description facility 2015-01-24 00:00:00 CBCDP [facility] date description facility 2015-01-24 00:00:00 [facility] date description facility 2015-05-24 00:00:00 BMP [facility] date description facility 2015-05-24 00:00:00 LIPIDS [facility] date description facility 2015-05-24 00:00:00 HGBA1C [facility] date description facility 2015-05-24 00:00:00 [facility] date description facility 2015-05-24 00:00:00 BMP [facility] date description facility 2015-05-24 00:00:00 LIPIDS [facility] date description facility 2015-05-24 00:00:00 HGBA1C [facility] date description facility 2015-05-24 00:00:00 [facility] date description facility 2015-08-01 00:00:00 Foot 3V [facility] date description facility 2015-08-01 00:00:00 Physical Therapy [facility] date description facility 2015-08-01 00:00:00 [facility] date description facility 2015-08-01 00:00:00 Foot 3V [facility] date description facility 2015-08-01 00:00:00 Physical Therapy [facility] date description facility 2015-08-01 00:00:00 [facility] date description facility 2015-08-06 00:00:00 Urine C&S [facility] date description facility 2015-08-06 00:00:00 Urinalysis, Dip Only, No Micro [facility] date description facility 2015-08-06 00:00:00 [facility] date description facility 2015-08-06 00:00:00 Urine C&S [facility] date description facility 2015-08-06 00:00:00 Urinalysis, Dip Only, No Micro [facility] date description facility 2015-08-06 00:00:00 [facility] date description facility 2015-08-30 00:00:00 BMP [facility] [address] date description facility 2015-08-30 00:00:00 Microalbumin [facility] date description facility 2015-08-30 00:00:00 HGBA1C [facility] [address] date description facility 2015-08-30 00:00:00 [facility] date description facility 2015-08-30 00:00:00 BMP [facility] date description facility 2015-08-30 00:00:00 Microalbumin [facility] date description facility 2015-08-30 00:00:00 HGBA1C [facility] date description facility 2015-08-30 00:00:00 [facility] date description facility 2015-09-06 00:00:00 Foot 3V [facility] date description facility 2015-09-06 00:00:00 [facility] date description facility 2015-09-06 00:00:00 Foot 3V [facility] date description facility 2015-09-06 00:00:00 [facility] date description facility 2015-10-20 00:00:00 Foot 3V [facility] date description facility 2015-10-20 00:00:00 [facility] date description facility 2015-10-20 00:00:00 Foot 3V [facility] date description facility 2015-10-20 00:00:00 [facility] date description facility 2015-12-13 00:00:00 HGBA1C [facility] date description facility 2015-12-13 00:00:00 [facility] date description facility 2015-12-13 00:00:00 HGBA1C [facility] date description facility 2015-12-13 00:00:00 [facility] date description facility 2016-03-16 00:00:00 BMP [facility] date description facility 2016-03-16 00:00:00 HGBA1C [facility] date description facility 2016-03-16 00:00:00 Acupuncture [facility] date description facility 2016-03-16 00:00:00 [facility] date description facility 2016-03-16 00:00:00 BMP [facility] date description facility 2016-03-16 00:00:00 HGBA1C [facility] date description facility 2016-03-16 00:00:00 Acupuncture [facility] date description facility 2016-03-16 00:00:00 [facility] date description facility 2016-04-20 00:00:00 MAMMOGRAPHY BILATERAL, [facility] [address] [address] date description facility 2016-04-20 00:00:00 [facility] date description facility 2016-04-20 00:00:00 MAMMOGRAPHY BILATERAL, [facility] date description facility 2016-04-20 00:00:00 [facility] date description facility 2016-07-18 00:00:00 BMP [facility] [address] date description facility 2016-07-18 00:00:00 Microalbumin [facility] [address] date description facility 2016-07-18 00:00:00 HGBA1C [facility] [address] date description facility 2016-07-18 00:00:00 [facility] [address] date description facility 2016-07-18 00:00:00 BMP [facility] date description facility 2016-07-18 00:00:00 Microalbumin [facility] date description facility 2016-07-18 00:00:00 HGBA1C [facility] date description facility 2016-07-18 00:00:00 [facility] date description facility 2016-10-29 00:00:00 BMP [facility] [address] date description facility 2016-10-29 00:00:00 LIPIDS [facility] date description facility 2016-10-29 00:00:00 HGBA1C [facility] [address] date description facility 2016-10-29 00:00:00 TSH [facility] [address] date description facility 2016-10-29 00:00:00 [facility] [address] date description facility 2016-10-29 00:00:00 BMP [facility] date description facility 2016-10-29 00:00:00 LIPIDS [facility] date description facility 2016-10-29 00:00:00 HGBA1C [facility] date description facility 2016-10-29 00:00:00 TSH [facility] date description facility 2016-10-29 00:00:00 [facility] date description facility 2016-12-10 00:00:00 Urine C&S [facility] date description facility 2016-12-10 00:00:00 Urinalysis, Dip Only, No Micro [facility] date description facility 2016-12-10 00:00:00 [facility] [address] date description facility 2016-12-10 00:00:00 Urine C&S [facility] date description facility 2016-12-10 00:00:00 Urinalysis, Dip Only, No Micro [facility] date description facility 2016-12-10 00:00:00 [facility] date description facility 2017-04-12 00:00:00 CHEST 2 VIEW [facility] [address] date description facility 2017-04-12 00:00:00 [facility] [address] date description facility 2017-04-12 00:00:00 CHEST 2 VIEW [facility] date description facility 2017-04-12 00:00:00 [facility] date description facility 2017-04-23 00:00:00 TSH w/Reflex to Free T4, if [facility] [address] date description facility 2017-04-23 00:00:00 CMP [facility] [address] date description facility 2017-04-23 00:00:00 LIPIDS [facility] date description facility 2017-04-23 00:00:00 HGBA1C [facility] [address] date description facility 2017-04-23 00:00:00 CBC W/Diff/Plt [facility] date description facility 2017-04-23 00:00:00 [facility] [address] date description facility 2017-04-23 00:00:00 TSH w/Reflex to Free T4, if [facility] date description facility 2017-04-23 00:00:00 CMP [facility] date description facility 2017-04-23 00:00:00 LIPIDS [facility] date description facility 2017-04-23 00:00:00 HGBA1C [facility] date description facility 2017-04-23 00:00:00 CBC W/Diff/Plt [facility] date description facility 2017-04-23 00:00:00 [facility] date description facility 2017-06-28 00:00:00 Urine C&S [facility] date description facility 2017-06-28 00:00:00 Urinalysis, Dip Only, No Micro [facility] date description facility 2017-06-28 00:00:00 [facility] [address] date description facility 2017-06-28 00:00:00 Urine C&S [facility] date description facility 2017-06-28 00:00:00 Urinalysis, Dip Only, No Micro [facility] date description facility 2017-06-28 00:00:00 [facility] date description facility 2017-07-24 00:00:00 Endocrinology Consultation [facility] date description facility 2017-07-24 00:00:00 [facility] [address] date description facility 2017-07-24 00:00:00 Endocrinology Consultation [facility] date description facility 2017-07-24 00:00:00 [facility] date description facility 2018-01-07 00:00:00 Endocrinology Consultation [facility] date description facility 2018-01-07 00:00:00 Podiatry Consultation [facility] date description facility 2018-01-07 00:00:00 [facility] date description facility 2018-03-18 00:00:00 US BREAST UNILATERAL COMP [facility] date description facility 2018-03-18 00:00:00 MM DIAG DIGIT MAMMO BILAT [facility] [address] date description facility 2018-03-18 00:00:00 [facility] [address] date description facility 2018-03-18 00:00:00 US BREAST UNILATERAL COMP [facility] date description facility 2018-03-18 00:00:00 MM DIAG DIGIT MAMMO BILAT [facility] date description facility 2018-03-18 00:00:00 [facility] date description facility 2018-06-04 00:00:00 COMPREHENSIVE METABOLIC PANEL [facility] [address] date description facility 2018-06-04 00:00:00 LIPID SCREEN, FASTING [facility] [address] date description facility 2018-06-04 00:00:00 MICROALBUMIN-RANDOM URINE [facility] date description facility 2018-06-04 00:00:00 HGBA1C [facility] [address] date description facility 2018-06-04 00:00:00 TSH [facility] [address] [address] date description facility 2018-06-04 00:00:00 CBC W/Diff/Plt [facility] [address] date description facility 2018-06-04 00:00:00 [facility] [address] date description facility 2018-06-04 00:00:00 COMPREHENSIVE METABOLIC PANEL [facility] date description facility 2018-06-04 00:00:00 LIPID SCREEN, FASTING [facility] date description facility 2018-06-04 00:00:00 MICROALBUMIN-RANDOM URINE [facility] date description facility 2018-06-04 00:00:00 HGBA1C [facility] date description facility 2018-06-04 00:00:00 TSH [facility] date description facility 2018-06-04 00:00:00 CBC W/Diff/Plt [facility] date description facility 2018-06-04 00:00:00 [facility] date description facility 2018-06-16 00:00:00 COMPREHENSIVE METABOLIC PANEL [facility] date description facility 2018-06-16 00:00:00 LIPID SCREEN, FASTING [facility] date description facility 2018-06-16 00:00:00 MICROALBUMIN-RANDOM URINE [facility] date description facility 2018-06-16 00:00:00 HGBA1C [facility] date description facility 2018-06-16 00:00:00 TSH [facility] date description facility 2018-06-16 00:00:00 CBC W/Diff/Plt [facility] date description facility 2018-06-16 00:00:00 [facility] date description facility 2018-09-08 00:00:00 HGBA1C [facility] date description facility 2018-09-08 00:00:00 [facility] date description facility 2018-12-10 00:00:00 Microalbumin/Creat Ratio [facility] date description facility 2018-12-10 00:00:00 COMPREHENSIVE METABOLIC PANEL [facility] date description facility 2018-12-10 00:00:00 LIPID SCREEN, FASTING [facility] date description facility 2018-12-10 00:00:00 HGBA1C [facility] date description facility 2018-12-10 00:00:00 CBC W/Diff/Plt [facility] date description facility 2018-12-10 00:00:00 [facility] date description facility 2019-02-10 00:00:00 TSH WITH REFLEX TO FT4 [facility] date description facility 2019-02-10 00:00:00 [facility] date description facility 2019-02-13 00:00:00 US THYROID/NECK [facility] date description facility 2019-02-13 00:00:00 [facility] date description facility 2019-03-12 00:00:00 HGBA1C [facility] date description facility 2019-03-12 00:00:00 [facility] date description facility 2019-06-08 00:00:00 Hep C AB with Reflex [facility] date description facility 2019-06-08 00:00:00 COMPREHENSIVE METABOLIC PANEL [facility] date description facility 2019-06-08 00:00:00 [facility]EN[facility]ING [facility] date description facility 2019-06-08 00:00:00 HGBA1C [facility] date description facility 2019-06-08 00:00[facility] description facility 2019-06-12 00:00:00 MM DIAG DIGIT MAMMO BILAT [facility] date description facility 2019-06-12 00:00:00 [facility] date description facility 2019-09-15 00:00:00 COMPREHENSIVE METABOLIC PANEL [facility] date description facility 2019-09-15 00:00:00 HGBA1C [facility] date description facility 2019-09-15 00:00:00 [facility] date description facility 2019-10-07 00:00:00 General Physician date description facility 2019-12-28 00:00:00 POC URINE DRUG TEST, iCUP [facility] date description facility 2019-12-28 00:00:00 [facility] date description facility 2020-03-18 00:00:00 TSH WITH REFLEX TO FT4 [facility] date description facility 2020-03-18 00:00:00 COMPREHENSIVE METABOLIC PANEL [facility] date description facility 2020-03-18 00:00:00 LIPID SCREEN, FASTING [facility] date description facility 2020-03-18 00:00:00 HGBA1C [facility] date description facility 2020-03-18 00:00:00 CBC W/Diff/Plt [facility] date description facility 2020-03-18 00:00:00 [facility] date description facility 2020-06-22 00:00:00 [facility] date description facility 2020-06-22 00:00:00 TSH WITH REFLEX TO FT4 [facility] date description facility 2020-06-22 00:00:00 COMPREHENSIVE METABOLIC PANEL [facility] date description facility 2020-06-22 00:00:00 LIPIDS SCREEN [facility] date description facility 2020-06-22 00:00:00 CBC W/Diff/Plt [facility] date description facility 2020-06-22 00:00:00 [facility] date description facility 2020-08-29 00:00:00 HGBA1C [facility] date description facility 2020-08-29 00:00:00 TSH [facility] date description facility 2020-08-29 00:00:00 [facility] Results Social History date description facility 2014-05-25 00:00:00 Former smoker [facility] [address] date description facility 2014-07-05 00:00:00 Former smoker [facility] date description facility 2014-09-13 00:00:00 Former smoker [facility] [address] date description facility 2014-11-19 00:00:00 Former smoker [facility] [address] date description facility 2014-12-24 00:00:00 Former smoker [facility] [address] date description facility 2015-02-11 00:00:00 Former smoker [facility] [address] date description facility 2015-06-03 00:00:00 Former smoker [facility] date description facility 2015-08-01 00:00:00 Former smoker [facility] [address] date description facility 2015-09-06 00:00:00 Former smoker [facility] date description facility 2015-10-20 00:00:00 Former smoker [facility] date description facility 2015-11-01 00:00:00 Former smoker [facility] date description facility 2015-12-13 00:00:00 Former smoker [facility] [address] date description facility 2016-01-13 00:00:00 Former smoker [facility] [address] date description facility 2016-03-16 00:00:00 Former smoker [facility] [address] date description facility 2016-04-20 00:00:00 Former smoker [facility] date description facility 2016-07-18 00:00:00 Former smoker [facility] [address] date description facility 2016-10-29 00:00:00 Former smoker [facility] [address] date description facility 2016-12-10 00:00:00 Former smoker [facility] date description facility 2017-04-12 00:00:00 Former smoker [facility] [address] date description facility 2017-04-23 00:00:00 Former smoker [facility] [address] date description facility 2017-06-28 00:00:00 Former smoker [facility] date description facility 2017-07-24 00:00:00 Former smoker [facility] [address] date description facility 2017-10-21 00:00:00 Former smoker [facility] date description facility 2018-01-07 00:00:00 Former smoker [facility] date description facility 2018-03-05 00:00:00 Former smoker [facility] [address] date description facility 2018-04-29 00:00:00 Former smoker [facility] [address] date description facility 2018-06-04 00:00:00 Former smoker [facility] date description facility 2018-08-14 00:00:00 Former smoker [facility] [address] date description facility 2019-02-10 00:00:00 Former smoker [facility] date description facility 2019-03-12 00:00:00 Former smoker [facility] date description facility 2019-06-08 00:00:00 Former smoker [facility] date description facility 2019-09-07 00:00:00 Former smoker [facility] date description facility 2019-09-15 00:00:00 Former smoker [facility] date description facility 2019-12-14 00:00:00 Former smoker [facility] date description facility 2019-12-28 00:00:00 Former smoker [facility] date description facility 2020-03-18 00:00:00 Former smoker [facility] date description facility 2020-06-22 00:00:00 Former smoker [facility] Social History date description facility 2014-05-25 00:00:00 Former smoker [facility] [address] date description facility 2014-07-05 00:00:00 Former smoker [facility] date description facility 2014-09-13 00:00:00 Former smoker [facility] [address] date description facility 2014-11-19 00:00:00 Former smoker [facility] [address] date description facility 2014-12-24 00:00:00 Former smoker [facility] [address] date description facility 2015-02-11 00:00:00 Former smoker [facility] [address] date description facility 2015-06-03 00:00:00 Former smoker [facility] date description facility 2015-08-01 00:00:00 Former smoker [facility] [address] date description facility 2015-09-06 00:00:00 Former smoker [facility] date description facility 2015-10-20 00:00:00 Former smoker [facility] date description facility 2015-11-01 00:00:00 Former smoker [facility] date description facility 2015-12-13 00:00:00 Former smoker [facility] [address] date description facility 2016-01-13 00:00:00 Former smoker [facility] [address] date description facility 2016-03-16 00:00:00 Former smoker [facility] [address] date description facility 2016-04-20 00:00:00 Former smoker [facility] date description facility 2016-07-18 00:00:00 Former smoker [facility] [address] date description facility 2016-10-29 00:00:00 Former smoker [facility] [address] date description facility 2016-12-10 00:00:00 Former smoker [facility] date description facility 2017-04-12 00:00:00 Former smoker [facility] [address] date description facility 2017-04-23 00:00:00 Former smoker [facility] [address] date description facility 2017-06-28 00:00:00 Former smoker [facility] date description facility 2017-07-24 00:00:00 Former smoker [facility] [address] date description facility 2017-10-21 00:00:00 Former smoker [facility] date description facility 2018-01-07 00:00:00 Former smoker [facility] date description facility 2018-03-05 00:00:00 Former smoker [facility] [address] date description facility 2018-04-29 00:00:00 Former smoker [facility] [address] date description facility 2018-06-04 00:00:00 Former smoker [facility] date description facility 2018-08-14 00:00:00 Former smoker [facility] [address] date description facility 2019-02-10 00:00:00 Former smoker [facility] date description facility 2019-03-12 00:00:00 Former smoker [facility] date description facility 2019-06-08 00:00:00 Former smoker [facility] date description facility 2019-09-07 00:00:00 Former smoker [facility] date description facility 2019-09-15 00:00:00 Former smoker [facility] date description facility 2019-12-14 00:00:00 Former smoker [facility] date description facility 2019-12-28 00:00:00 Former smoker [facility] date description facility 2020-03-18 00:00:00 Former smoker [facility] date description facility 2020-06-22 00:00:00 Former smoker [facility] date description facility [phone]
== END 2020-09-19 08:01 | disposition home or self-care (01) ==
LOC: LAB.WCP 08:00
PROVIDERS: ATTEND Family Medicine
DX: E11.8 Type 2 diabetes mellitus with unspecified complications (principal)
CPT/HCPCS: 36415; 83036; 84443

== ENCOUNTER 2020-12-16 08:00 | Outpatient (CLI) | payer BC, OTHER ==
[2020-12-16 17:58] LABS: BASOPHILS % (AUTO) 0.2 %; EOSINOPHILS # (AUTO) 0.2 10^3/uL (0.0-0.7); EOSINOPHILS % (AUTO) 1.6 %; HCT - HEMATOCRIT 46.3 % (37.0-47.0); HGB - HEMOGLOBIN 14.8 g/dL (12.0-16.0); LYMPHOCYTES # (AUTO) 2.2 10^3/uL (1.5-3.5); LYMPHOCYTES % (AUTO) 22.9 %; MEAN CORPUSCULAR HEMOGLOBIN 30.1 pg (27.0-31.0); MEAN CORPUSCULAR VOLUME 94.1 fL (81.0-99.0); MEAN PLATELET VOLUME 11.8 fL (7.9-10.8); MONOCYTES # (AUTO) 0.7 10^3/uL (0.0-1.0); MONOCYTES % (AUTO) 7.3 %; NEUTROPHILS # (AUTO) 6.6 10^3/uL (1.5-6.6); NEUTROPHILS % (AUTO) 67.7 %; PLT - PLATELET COUNT 214 10^3/uL (130-450); RED BLOOD COUNT 4.92 10^6/uL (4.20-5.40); RED CELL DISTRIBUTION WIDTH 13.2 % (12.0-15.0); WHITE BLOOD COUNT 9.8 x10^3/uL (4.8-10.8)
[2020-12-16 18:18] LABS: ALBUMIN 4.5 g/dL (3.2-5.5); ALBUMIN/GLOBULIN RATIO 1.2 (1.0-2.2); ALKALINE PHOSPHATASE 100 IU/L (42-121); ALT ALANINE AMINOTRANSFERASE 26 IU/L (10-60); AST ASPARTATE AMINOTRANSFERASE 16 IU/L (10-42); BILIRUBIN,TOTAL 0.9 mg/dL (0.2-1.0); BUN - BLOOD UREA NITROGEN 25 mg/dL (6-20); CALCIUM 10.2 mg/dL (8.5-10.3); CARBON DIOXIDE - CO2 24 mmol/L (21-32); CHLORIDE 103 mmol/L (101-111); CHOL/HDL RATIO 3.1 (<4.4); CHOLESTEROL 252 mg/dL; CREATININE 0.7 mg/dL (0.4-1.0); GFR - MDRD 84 (>89); GLUCOSE 178 mg/dL (70-100); HDL CHOLESTEROL 82 mg/dL; LDL CHOLESTEROL,CALCULATED 133 mg/dL; LDL/HDL RATIO 1.6 (<4.4); POTASSIUM 3.9 mmol/L (3.5-5.0); SODIUM 138 mmol/L (135-145); TOTAL PROTEIN 8.3 g/dL (6.7-8.2); TRIGLYCERIDES 184 mg/dL; VLDL CHOLESTEROL 37 mg/dL
[2020-12-16 18:32] LABS: MICROALBUM/CREATININE RATIO,UR 405.9 ug/mg (<30.0); MICROALBUMIN,URINE 47.9 mg/dL (0-300.0)
[2020-12-16 20:22] LABS: ESTIMATED AVERAGE GLUCOSE 214 mg/dL (70-100); HEMOGLOBIN A1c% 9.1 % (4.27-6.07)
== END 2020-12-16 23:59 | disposition home or self-care (01) ==
LOC: LAB.WCP 08:00
PROVIDERS: ATTEND Family Medicine
DX: E11.9 Type 2 diabetes mellitus without complications (principal)
CPT/HCPCS: 36415; 80053; 80061; 82043; 82570; 83036; 83721; 85025

== ENCOUNTER 2021-03-20 08:00 | Outpatient (CLI) | payer OTHER ==
[2021-03-20 18:05] LABS: BASOPHILS % (AUTO) 0.2 %; EOSINOPHILS # (AUTO) 0.2 10^3/uL (0.0-0.7); EOSINOPHILS % (AUTO) 1.5 %; HCT - HEMATOCRIT 44.3 % (37.0-47.0); HGB - HEMOGLOBIN 14.5 g/dL (12.0-16.0); LYMPHOCYTES # (AUTO) 2.2 10^3/uL (1.5-3.5); LYMPHOCYTES % (AUTO) 16.6 %; MEAN CORPUSCULAR HEMOGLOBIN 31.3 pg (27.0-31.0); MEAN CORPUSCULAR HGB CONC 32.7 g/dL (32.0-36.0); MEAN CORPUSCULAR VOLUME 95.5 fL (81.0-99.0); MEAN PLATELET VOLUME 11.4 fL (7.9-10.8); MONOCYTES % (AUTO) 7.4 %; NEUTROPHILS # (AUTO) 9.6 10^3/uL (1.5-6.6); NEUTROPHILS % (AUTO) 73.7 %; PLT - PLATELET COUNT 249 10^3/uL (130-450); RED BLOOD COUNT 4.64 10^6/uL (4.20-5.40); RED CELL DISTRIBUTION WIDTH 13.2 % (12.0-15.0)
[2021-03-20 18:20] LABS: ALBUMIN 3.9 g/dL (3.2-5.5); BILIRUBIN,TOTAL 0.5 mg/dL (0.2-1.0); CALCIUM 9.3 mg/dL (8.5-10.3); POTASSIUM 4.2 mmol/L (3.5-5.0); TOTAL PROTEIN 7.7 g/dL (6.7-8.2)
[2021-03-20 20:33] LABS: ESTIMATED AVERAGE GLUCOSE 223 mg/dL (70-100); HEMOGLOBIN A1c% 9.4 % (4.27-6.07)
== END 2021-03-20 23:59 | disposition home or self-care (01) ==
LOC: LAB.WCP 08:00
PROVIDERS: ATTEND Family Medicine
DX: E11.8 Type 2 diabetes mellitus with unspecified complications (principal)
CPT/HCPCS: 36415; 80053; 83036; 85025

== ENCOUNTER 2021-06-13 09:25 | Outpatient (CLI) | payer OTHER ==
[2021-06-13 11:46] LABS: BASOPHILS % (AUTO) 0.3 %; EOSINOPHILS # (AUTO) 0.2 10^3/uL (0.0-0.7); EOSINOPHILS % (AUTO) 2.5 %; HCT - HEMATOCRIT 43.3 % (37.0-47.0); HGB - HEMOGLOBIN 13.4 g/dL (12.0-16.0); LYMPHOCYTES # (AUTO) 1.8 10^3/uL (1.5-3.5); LYMPHOCYTES % (AUTO) 19.2 %; MEAN CORPUSCULAR HEMOGLOBIN 29.9 pg (27.0-31.0); MEAN CORPUSCULAR HGB CONC 30.9 g/dL (32.0-36.0); MEAN CORPUSCULAR VOLUME 96.7 fL (81.0-99.0); MONOCYTES # (AUTO) 0.7 10^3/uL (0.0-1.0); MONOCYTES % (AUTO) 7.1 %; NEUTROPHILS # (AUTO) 6.4 10^3/uL (1.5-6.6); NEUTROPHILS % (AUTO) 70.5 %; PLT - PLATELET COUNT 247 10^3/uL (130-450); RED BLOOD COUNT 4.48 10^6/uL (4.20-5.40); RED CELL DISTRIBUTION WIDTH 13.2 % (12.0-15.0); WHITE BLOOD COUNT 9.1 x10^3/uL (4.8-10.8)
[2021-06-13 12:33] LABS: ALBUMIN 3.9 g/dL (3.2-5.5); ALBUMIN/GLOBULIN RATIO 1.1 (1.0-2.2); ALKALINE PHOSPHATASE 82 IU/L (42-121); ALT ALANINE AMINOTRANSFERASE 24 IU/L (10-60); AST ASPARTATE AMINOTRANSFERASE 18 IU/L (10-42); BUN - BLOOD UREA NITROGEN 21 mg/dL (6-20); CALCIUM 9.1 mg/dL (8.5-10.3); CARBON DIOXIDE - CO2 23 mmol/L (21-32); CHLORIDE 108 mmol/L (101-111); CHOL/HDL RATIO 2.9 (<4.4); CHOLESTEROL 217 mg/dL; CREATININE 0.8 mg/dL (0.4-1.0); GFR - MDRD 72 (>89); GLUCOSE 221 mg/dL (70-100); HDL CHOLESTEROL 75 mg/dL; LDL CHOLESTEROL,CALCULATED 107 mg/dL; LDL/HDL RATIO 1.4 (<4.4); SODIUM 141 mmol/L (135-145); TOTAL PROTEIN 7.5 g/dL (6.7-8.2); TRIGLYCERIDES 174 mg/dL; VLDL CHOLESTEROL 35 mg/dL
[2021-06-13 13:33] LABS: ESTIMATED AVERAGE GLUCOSE 235 mg/dL (70-100); HEMOGLOBIN A1c% 9.8 % (4.27-6.07)
== END 2021-06-13 23:59 | disposition home or self-care (01) ==
LOC: LAB.WCP 09:25
PROVIDERS: ATTEND Family Medicine
DX: E11.8 Type 2 diabetes mellitus with unspecified complications (principal)
CPT/HCPCS: 36415; 80053; 80061; 83036; 83721; 85025

== ENCOUNTER 2021-07-20 10:56 | Outpatient (CLI) | payer OTHER ==
--- NOTE | 2021-07-21 09:00 | Mammography Report ---
BILATERAL DIGITAL SCREENING MAMMOGRAM 3D/2D: 07/20/2021 CLINICAL: Family history of breast cancer. Routine screening. Comparison is made to exams dated: 07/01/2020 mammogram, 06/17/2019 mammogram, 12/23/2018 mammogram, mammogram, and 05/16/2016 mammogram - [facility]. There are scattered fibro glandular elements in both breasts. There are benign calcifications in the right breast. No significant masses, calcifications, or other findings are seen in either breast. There has been no significant interval change. IMPRESSION: BENIGN There is no mammographic evidence of malignancy. A 1 year screening mammogram is recommended. This exam was interpreted at Station ID: [id number]. NOTE: For mammograms, a report in lay terms will be sent to the patient. Approximately 15% of breast malignancies will not be visualized mammographically. In the management of a palpable breast mass, a negative mammogram must not discourage biopsy of a clinically suspicious lesion. Electronically Signed By: Tino Clinton M.D. [facility] [email or web address]:07/20/2021 12:29:43 ACR BI-RADS Category 2: Benign Finding(s) 3342F PARENCHYMAL PATTERN: (A) - The breast(s) demonstrate(s) scattered fibroglandular densities. BI-RADS CATEGORY: (2) - 2 RECOMMENDATION: (ANNUAL) - Recommend routine annual screening mammography. [id number] 1 year screening LATERALITY: (B)
== END 2021-07-20 10:57 | disposition home or self-care (01) ==
LOC: DI.N 10:56
DX: Z12.31 Encounter for screening mammogram for malignant neoplasm of breast (principal); Z80.3 Family history of malignant neoplasm of breast

== ENCOUNTER 2021-09-18 08:00 | Outpatient (CLI) | payer OTHER ==
[2021-09-18 12:35] LABS: ESTIMATED AVERAGE GLUCOSE 223 mg/dL (70-100); HEMOGLOBIN A1c% 9.4 % (4.27-6.07)
[2021-09-18 12:38] LABS: BASOPHILS % (AUTO) 0.2 %; EOSINOPHILS # (AUTO) 0.2 10^3/uL (0.0-0.7); EOSINOPHILS % (AUTO) 1.9 %; HCT - HEMATOCRIT 44.6 % (37.0-47.0); HGB - HEMOGLOBIN 14.1 g/dL (12.0-16.0); LYMPHOCYTES # (AUTO) 1.5 10^3/uL (1.5-3.5); LYMPHOCYTES % (AUTO) 16.3 %; MEAN CORPUSCULAR HEMOGLOBIN 29.9 pg (27.0-31.0); MEAN CORPUSCULAR HGB CONC 31.6 g/dL (32.0-36.0); MEAN CORPUSCULAR VOLUME 94.7 fL (81.0-99.0); MEAN PLATELET VOLUME 11.8 fL (7.9-10.8); MONOCYTES # (AUTO) 0.7 10^3/uL (0.0-1.0); MONOCYTES % (AUTO) 7.1 %; NEUTROPHILS # (AUTO) 6.9 10^3/uL (1.5-6.6); NEUTROPHILS % (AUTO) 74.1 %; PLT - PLATELET COUNT 205 10^3/uL (130-450); RED BLOOD COUNT 4.71 10^6/uL (4.20-5.40); RED CELL DISTRIBUTION WIDTH 13.2 % (12.0-15.0); WHITE BLOOD COUNT 9.3 x10^3/uL (4.8-10.8)
[2021-09-18 12:44] LABS: ALBUMIN 3.8 g/dL (3.2-5.5); ALKALINE PHOSPHATASE 106 IU/L (42-121); ALT ALANINE AMINOTRANSFERASE 19 IU/L (10-60); AST ASPARTATE AMINOTRANSFERASE 16 IU/L (10-42); BUN - BLOOD UREA NITROGEN 17 mg/dL (6-20); CALCIUM 9.6 mg/dL (8.5-10.3); CARBON DIOXIDE - CO2 24 mmol/L (21-32); CHLORIDE 103 mmol/L (101-111); CHOL/HDL RATIO 2.6 (<4.4); CHOLESTEROL 224 mg/dL; CREATININE 0.8 mg/dL (0.4-1.0); GFR - MDRD 72 (>89); GLUCOSE 168 mg/dL (70-100); HDL CHOLESTEROL 86 mg/dL; LDL CHOLESTEROL,CALCULATED 108 mg/dL; LDL/HDL RATIO 1.3 (<4.4); POTASSIUM 3.9 mmol/L (3.5-5.0); SODIUM 138 mmol/L (135-145); TOTAL PROTEIN 7.8 g/dL (6.7-8.2); TRIGLYCERIDES 149 mg/dL; VLDL CHOLESTEROL 30 mg/dL
== END 2021-09-18 23:59 | disposition home or self-care (01) ==
LOC: LAB.WCP 08:00
PROVIDERS: ATTEND Family Medicine
DX: E11.8 Type 2 diabetes mellitus with unspecified complications (principal)
CPT/HCPCS: 36415; 80053; 80061; 83036; 83721; 85025

== ENCOUNTER 2021-12-29 08:15 | Outpatient (CLI) | payer OTHER ==
--- NOTE | 2021-12-29 09:09 | DEXA Report ---
PROCEDURE: Dexa Spine and/or Hip INDICATIONS: POSTMENOPAUSAL TECHNIQUE: Dual energy x-ray absorptiometry (DXA) was performed on a [employer]. Regions measur ed are the AP Spine, femoral neck, and if needed forearm. COMPARISON: None. FINDINGS: Lumbar Spine: Bone Mineral Density 1.105 g/cm/cm,T score -0.6. Left Hip: Bone Mineral Density 0.848 g/cm/cm,T score -1.3. Left Femoral Neck: Bone Mineral Density 0.793 g/cm/cm, T score -1.8. (T score greater or equal to -1.0: NORMAL) (T score from -1.1 to -2.4: OSTEOPENIA) (T score less than or equal to -2.5 to: OSTEOPOROSIS) Impression: Osteopenia. Patients with diagnosis of osteoporosis or osteopenia should have regular bone mineral density assess ment. For those eligible for Medicare, routine testing is allowed once every 2 years. Testing frequ ency can be increased for patients who have rapidly progressing disease or for those who are receivin g medical therapy to restore bone mass. Reviewed by: Shahram Tian MD on 12/29/2021 9:08 AM PDT Approved by: Shahram Tian MD on 12/29/2021 9:08 AM PDT Station ID: [id number]
== END 2021-12-29 08:16 | disposition home or self-care (01) ==
LOC: DI 08:15
PROVIDERS: ATTEND Family Medicine
DX: Z78.0 Asymptomatic menopausal state (principal); M85.89 Other specified disorders of bone density and structure, multiple sites

== ENCOUNTER 2022-01-30 12:01 | Outpatient (CLI) | payer OTHER ==
[2022-01-30 18:38] LABS: BASOPHILS % (AUTO) 0.3 %; EOSINOPHILS # (AUTO) 0.3 10^3/uL (0.0-0.7); EOSINOPHILS % (AUTO) 3.2 %; HCT - HEMATOCRIT 45.9 % (37.0-47.0); HGB - HEMOGLOBIN 14.5 g/dL (12.0-16.0); LYMPHOCYTES # (AUTO) 1.6 10^3/uL (1.5-3.5); LYMPHOCYTES % (AUTO) 16.4 %; MEAN CORPUSCULAR HEMOGLOBIN 29.6 pg (27.0-31.0); MEAN CORPUSCULAR HGB CONC 31.6 g/dL (32.0-36.0); MEAN CORPUSCULAR VOLUME 93.7 fL (81.0-99.0); MEAN PLATELET VOLUME 11.3 fL (7.9-10.8); MONOCYTES # (AUTO) 0.8 10^3/uL (0.0-1.0); MONOCYTES % (AUTO) 8.6 %; NEUTROPHILS # (AUTO) 6.8 10^3/uL (1.5-6.6); NEUTROPHILS % (AUTO) 71.1 %; PLT - PLATELET COUNT 228 10^3/uL (130-450); RED CELL DISTRIBUTION WIDTH 13.2 % (12.0-15.0); WHITE BLOOD COUNT 9.6 x10^3/uL (4.8-10.8)
[2022-01-30 18:52] LABS: ALKALINE PHOSPHATASE 88 IU/L (42-121); ALT ALANINE AMINOTRANSFERASE 28 IU/L (10-60); AST ASPARTATE AMINOTRANSFERASE 28 IU/L (10-42); BUN - BLOOD UREA NITROGEN 16 mg/dL (6-20); CALCIUM 9.5 mg/dL (8.5-10.3); CARBON DIOXIDE - CO2 21 mmol/L (21-32); CHLORIDE 109 mmol/L (101-111); CHOL/HDL RATIO 2.8 (<4.4); CHOLESTEROL 223 mg/dL; CREATININE 0.8 mg/dL (0.4-1.0); GFR - MDRD 72 (>89); GLUCOSE 120 mg/dL (70-100); HDL CHOLESTEROL 81 mg/dL; LDL CHOLESTEROL,CALCULATED 111 mg/dL; LDL/HDL RATIO 1.4 (<4.4); POTASSIUM 4.1 mmol/L (3.5-5.0); SODIUM 139 mmol/L (135-145); TOTAL PROTEIN 7.9 g/dL (6.7-8.2); TRIGLYCERIDES 153 mg/dL; VLDL CHOLESTEROL 31 mg/dL
[2022-01-30 19:02] LABS: THYROID STIMULATING HORMONE 0.69 uIU/mL (0.34-5.60)
[2022-01-30 21:08] LABS: ESTIMATED AVERAGE GLUCOSE 217 mg/dL (70-100); HEMOGLOBIN A1c% 9.2 % (4.27-6.07)
== END 2022-01-30 12:02 | disposition home or self-care (01) ==
LOC: LAB.N 12:01
PROVIDERS: ATTEND Family Medicine
DX: E11.8 Type 2 diabetes mellitus with unspecified complications (principal)
CPT/HCPCS: 36415; 80053; 80061; 83036; 83721; 84443; 85025

== ENCOUNTER 2022-06-28 09:11 | Outpatient (CLI) | payer OTHER ==
[2022-06-28 12:32] LABS: ESTIMATED AVERAGE GLUCOSE 192 mg/dL (70-100); HEMOGLOBIN A1c% 8.3 % (4.27-6.07)
[2022-06-28 12:34] LABS: CHOL/HDL RATIO 2.5 (<4.4); CHOLESTEROL 224 mg/dL; HDL CHOLESTEROL 89 mg/dL; LDL CHOLESTEROL,CALCULATED 111 mg/dL; LDL/HDL RATIO 1.2 (<4.4); TRIGLYCERIDES 121 mg/dL; VLDL CHOLESTEROL 24 mg/dL
[2022-06-28 13:18] LABS: CREATININE,URINE 206.1 mg/dL
[2022-06-28 14:23] LABS: MICROALBUM/CREATININE RATIO,UR 214.5 ug/mg (<30.0); MICROALBUMIN,URINE 44.2 mg/dL (0-300.0)
== END 2022-06-28 09:12 | disposition home or self-care (01) ==
LOC: LAB.N 09:11
PROVIDERS: ATTEND Nurse Practitioner
DX: E78.5 Hyperlipidemia, unspecified (principal); E11.65 Type 2 diabetes mellitus with hyperglycemia
CPT/HCPCS: 36415; 80061; 82043; 82570; 83036; 83721

== ENCOUNTER 2022-10-10 13:37 | Outpatient (CLI) | payer OTHER ==
--- NOTE | 2022-10-11 10:35 | Mammography Report ---
BILATERAL DIGITAL SCREENING MAMMOGRAM 3D/2D: 10/10/2022 CLINICAL: Family history of breast cancer. Routine screening. Comparison is made to exams dated: 07/20/2021 mammogram, 07/01/2020 mammogram, 06/17/2019 mammogram, mammogram, 03/14/2018 mammogram, and 05/16/2016 mammogram - [facility]. There are scattered areas of fibroglandular density in both breasts (category b / 25%-50% glandular t issue). There are benign calcifications in the right breast. No significant masses, calcifications, or other findings are seen in either breast. There has been no significant interval change. IMPRESSION: BENIGN There is no mammographic evidence of malignancy. A 1 year screening mammogram is recommended. Based on the Tyrer Cuzick model (a risk assessment model) the patients lifetime risk is 12.9% and he r 10 year risk is 6.6%. According to the ACR, ACS, and NCCN guidelines, an annual breast MRI exam igor ng with mammogram is recommended if the patients lifetime risk is 20% or greater. This exam was interpreted at Station ID: [id number]. NOTE: For mammograms, a report in lay terms will be sent to the patient. Approximately 15% of breast malignancies will not be visualized mammographically. In the management of a palpable breast mass, a negative mammogram must not discourage biopsy of a clinically suspicious lesion. Electronically Signed By: Douglas Darnell M.D. [email or web address]:10/10/2022 17:19:27 ACR BI-RADS Category 2: Benign Finding(s) 3342F PARENCHYMAL PATTERN: (A) - The breast(s) demonstrate(s) scattered fibroglandular densities. BI-RADS CATEGORY: (2) - 2 RECOMMENDATION: (ANNUAL) - Recommend routine annual screening mammography. [id number] 1 year screening LATERALITY: (B)
== END 2022-10-10 13:38 | disposition home or self-care (01) ==
LOC: DI.N 13:37
PROVIDERS: ATTEND Nurse Practitioner
DX: Z12.31 Encounter for screening mammogram for malignant neoplasm of breast (principal); Z80.3 Family history of malignant neoplasm of breast

== ENCOUNTER 2023-01-25 10:31 | Outpatient (CLI) | payer MEDICARE ==
[2023-01-25 12:52] LABS: ESTIMATED AVERAGE GLUCOSE 212 mg/dL (70-100)
== END 2023-01-25 10:32 | disposition home or self-care (01) ==
LOC: LAB.N 10:31
PROVIDERS: ATTEND Nurse Practitioner
DX: E11.8 Type 2 diabetes mellitus with unspecified complications (principal)
CPT/HCPCS: 36415; 83036

== ENCOUNTER 2023-05-02 08:09 | Outpatient (CLI) | payer MEDICARE ==
[2023-05-02 12:05] LABS: BASOPHILS % (AUTO) 0.2 %; EOSINOPHILS # (AUTO) 0.3 10^3/uL (0.0-0.7); EOSINOPHILS % (AUTO) 3.3 %; HCT - HEMATOCRIT 43.5 % (37.0-47.0); HGB - HEMOGLOBIN 14.1 g/dL (12.0-16.0); LYMPHOCYTES # (AUTO) 1.7 10^3/uL (1.5-3.5); LYMPHOCYTES % (AUTO) 17.4 %; MEAN CORPUSCULAR HEMOGLOBIN 30.6 pg (27.0-31.0); MEAN CORPUSCULAR HGB CONC 32.4 g/dL (32.0-36.0); MEAN CORPUSCULAR VOLUME 94.4 fL (81.0-99.0); MEAN PLATELET VOLUME 11.1 fL (7.9-10.8); MONOCYTES # (AUTO) 0.9 10^3/uL (0.0-1.0); MONOCYTES % (AUTO) 8.6 %; NEUTROPHILS % (AUTO) 70.2 %; PLT - PLATELET COUNT 263 10^3/uL (130-450); RED BLOOD COUNT 4.61 10^6/uL (4.20-5.40); RED CELL DISTRIBUTION WIDTH 12.8 % (12.0-15.0)
[2023-05-02 12:15] LABS: ESTIMATED AVERAGE GLUCOSE 209 mg/dL (70-100); HEMOGLOBIN A1c% 8.9 % (4.27-6.07)
[2023-05-02 12:29] LABS: ALBUMIN/GLOBULIN RATIO 1.2 (1.0-2.2); ALKALINE PHOSPHATASE 83 IU/L (42-121); ALT ALANINE AMINOTRANSFERASE 19 IU/L (10-60); AST ASPARTATE AMINOTRANSFERASE 16 IU/L (10-42); BILIRUBIN,TOTAL 0.6 mg/dL (0.2-1.0); BUN - BLOOD UREA NITROGEN 17 mg/dL (6-20); CALCIUM 9.8 mg/dL (8.5-10.3); CARBON DIOXIDE - CO2 25 mmol/L (21-32); CHLORIDE 108 mmol/L (101-111); CHOL/HDL RATIO 2.9 (<4.4); CHOLESTEROL 197 mg/dL; CREATININE 0.9 mg/dL (0.6-1.3); GFR - MDRD 62 (>89); GLUCOSE 119 mg/dL (74-104); HDL CHOLESTEROL 68 mg/dL; LDL CHOLESTEROL,CALCULATED 94 mg/dL; LDL/HDL RATIO 1.4 (<4.4); POTASSIUM 3.9 mmol/L (3.5-4.5); SODIUM 140 mmol/L (135-145); TOTAL PROTEIN 7.3 g/dL (6.4-8.9); TRIGLYCERIDES 176 mg/dL (48-352); VLDL CHOLESTEROL 35 mg/dL
[2023-05-02 12:46] LABS: CREATININE,URINE 151.5 mg/dL; MICROALBUM/CREATININE RATIO,UR 187.5 ug/mg (<30.0); MICROALBUMIN,URINE 28.4 mg/dL
== END 2023-05-02 08:10 | disposition home or self-care (01) ==
LOC: LAB.N 08:09
PROVIDERS: ATTEND Nurse Practitioner
DX: E11.8 Type 2 diabetes mellitus with unspecified complications (principal); E78.5 Hyperlipidemia, unspecified; I10 Essential (primary) hypertension
CPT/HCPCS: 36415; 80053; 80061; 82043; 82570; 83036; 83721; 85025

== ENCOUNTER 2023-07-26 09:51 | Outpatient (CLI) | payer MEDICARE ==
[2023-07-26 12:34] LABS: BASOPHILS % (AUTO) 0.4 %; EOSINOPHILS # (AUTO) 0.2 10^3/uL (0.0-0.7); EOSINOPHILS % (AUTO) 2.8 %; HGB - HEMOGLOBIN 14.7 g/dL (12.0-16.0); LYMPHOCYTES # (AUTO) 1.8 10^3/uL (1.5-3.5); LYMPHOCYTES % (AUTO) 21.6 %; MEAN CORPUSCULAR HEMOGLOBIN 30.1 pg (27.0-31.0); MEAN CORPUSCULAR VOLUME 94.3 fL (81.0-99.0); MEAN PLATELET VOLUME 11.6 fL (7.9-10.8); MONOCYTES # (AUTO) 0.7 10^3/uL (0.0-1.0); MONOCYTES % (AUTO) 8.9 %; NEUTROPHILS # (AUTO) 5.4 10^3/uL (1.5-6.6); NEUTROPHILS % (AUTO) 66.1 %; PLT - PLATELET COUNT 240 10^3/uL (130-450); RED BLOOD COUNT 4.88 10^6/uL (4.20-5.40); RED CELL DISTRIBUTION WIDTH 12.9 % (12.0-15.0); WHITE BLOOD COUNT 8.1 x10^3/uL (4.8-10.8)
[2023-07-26 12:56] LABS: ESTIMATED AVERAGE GLUCOSE 209 mg/dL (70-100); HEMOGLOBIN A1c% 8.9 % (4.27-6.07)
[2023-07-26 13:01] LABS: THYROID STIMULATING HORMONE 1.51 uIU/mL (0.34-5.60)
[2023-07-26 13:10] LABS: ALBUMIN 4.3 g/dL (3.2-5.5); ALBUMIN/GLOBULIN RATIO 1.4 (1.0-2.2); ALKALINE PHOSPHATASE 98 IU/L (42-121); ALT ALANINE AMINOTRANSFERASE 24 IU/L (10-60); AST ASPARTATE AMINOTRANSFERASE 18 IU/L (10-42); BILIRUBIN,TOTAL 0.7 mg/dL (0.2-1.0); BUN - BLOOD UREA NITROGEN 18 mg/dL (6-20); CALCIUM 9.7 mg/dL (8.5-10.3); CARBON DIOXIDE - CO2 26 mmol/L (21-32); CHLORIDE 106 mmol/L (101-111); CHOL/HDL RATIO 2.6 (<4.4); CHOLESTEROL 181 mg/dL; CREATININE 0.9 mg/dL (0.6-1.3); CREATININE,URINE 50.7 mg/dL; GFR - MDRD 62 (>89); GLUCOSE 255 mg/dL (74-104); HDL CHOLESTEROL 70 mg/dL; LDL CHOLESTEROL,CALCULATED 83 mg/dL; LDL/HDL RATIO 1.2 (<4.4); MICROALBUM/CREATININE RATIO,UR 153.8 ug/mg (<30.0); MICROALBUMIN,URINE 7.8 mg/dL; POTASSIUM 4.2 mmol/L (3.5-4.5); SODIUM 142 mmol/L (135-145); TOTAL PROTEIN 7.4 g/dL (6.4-8.9); TRIGLYCERIDES 141 mg/dL (48-352); VLDL CHOLESTEROL 28 mg/dL
== END 2023-07-26 09:52 | disposition home or self-care (01) ==
LOC: LAB.N 09:51
PROVIDERS: ATTEND Nurse Practitioner
DX: E11.8 Type 2 diabetes mellitus with unspecified complications (principal); E78.5 Hyperlipidemia, unspecified; Z79.4 Long term (current) use of insulin; J06.9 Acute upper respiratory infection, unspecified; J20.9 Acute bronchitis, unspecified
CPT/HCPCS: 36415; 80053; 80061; 82043; 82570; 83036; 83721; 84443; 85025

== ENCOUNTER 2024-03-12 15:00 | Outpatient (CLI) | payer MEDICARE ==
[2024-03-12 20:58] LABS: ESTIMATED AVERAGE GLUCOSE 235 mg/dL (70-100); HEMOGLOBIN A1c% 9.8 % (4.27-6.07)
== END 2024-03-12 15:01 | disposition home or self-care (01) ==
LOC: LAB.N 15:00
PROVIDERS: ATTEND Nurse Practitioner
DX: E11.8 Type 2 diabetes mellitus with unspecified complications (principal)
CPT/HCPCS: 36415; 83036

== ENCOUNTER 2024-03-17 10:27 | Outpatient (CLI) | payer MEDICARE ==
--- NOTE | 2024-03-18 09:36 | Mammography Report ---
BILATERAL DIGITAL SCREENING MAMMOGRAM 3D/2D: 03/17/2024 CLINICAL: Routine screening. Family history of breast cancer. Comparison is made to exams dated: 10/10/2022 mammogram, 07/20/2021 mammogram, and 07/01/2020 [address]ogra [address] - [facility]. There are scattered areas of fibroglandular density in both breasts (category b / 25%-50% glandular t issue). There are benign calcifications in the right breast. No significant masses, calcifications, or other findings are seen in either breast. There has been no significant interval change. IMPRESSION: BENIGN There is no mammographic evidence of malignancy. A 1 year screening mammogram is recommended. Based on the Tyrer Cuzick model (a risk assessment model) the patient's lifetime risk is 11.7% and he r 10 year risk is 6.5%. According to the ACR, ACS, and NCCN guidelines, an annual breast MRI exam igor ng with mammogram is recommended if the patient's lifetime risk is 20% or greater. This exam was interpreted at Station ID: [id number]. NOTE: For mammograms, a report in lay terms will be sent to the patient. Approximately 15% of breast malignancies will not be visualized mammographically. In the management of a palpable breast mass, a negative mammogram must not discourage biopsy of a clinically suspicious lesion. Electronically Signed By: Stefan fischer/carissa:03/17/2024 13:00:23 letter sent: No_Letter ACR BI-RADS Category 2: Benign Finding(s) 3342F PARENCHYMAL PATTERN: (A) - The breast(s) demonstrate(s) scattered fibroglandular densities. BI-RADS CATEGORY: (2) - 2 RECOMMENDATION: (ANNUAL) - Recommend routine annual screening mammography. [id number] 1 year screening LATERALITY: (B)
== END 2024-03-17 10:28 | disposition home or self-care (01) ==
LOC: DI.N 10:27
DX: Z12.31 Encounter for screening mammogram for malignant neoplasm of breast (principal); R92.323 Mammographic fibroglandular density, bilateral breasts; Z80.3 Family history of malignant neoplasm of breast

== ENCOUNTER 2024-04-01 14:08 | Outpatient (CLI) | payer MEDICARE ==
--- NOTE | 2024-04-01 14:44 | DEXA Report ---
PROCEDURE: Dexa Spine and/or Hip INDICATIONS: POST MENOPAUSAL TECHNIQUE: Dual energy x-ray absorptiometry (DXA) was performed on a [employer]. Regions measur ed are the AP Spine, femoral neck, and if needed forearm. COMPARISON: None FINDINGS: Lumbar Spine: Bone Mineral Density: 1.047 g/cm/cm,T score: -1.1. Left Femoral Neck: Bone Mineral Density: 0.779 g/cm/cm, T score: -1.0. Left Hip: Bone Mineral Density: 0.838 g/cm/cm,T score: -1.3. (T score greater or equal to -1.0: NORMAL) (T score from -1.1 to -2.4: OSTEOPENIA) (T score less than or equal to -2.5 to: OSTEOPOROSIS) Impression: By WHO criteria, this patient has minimal to mild osteopenia in the lumbar spine and left hip. Patients with diagnosis of osteoporosis or osteopenia should have regular bone mineral density assess ment. For those eligible for Medicare, routine testing is allowed once every 2 years. Testing frequ ency can be increased for patients who have rapidly progressing disease or for those who are receivin g medical therapy to restore bone mass. Reviewed by: Isabelle Joe MD on 04/01/2024 2:43 PM PDT Approved by: Isabelle Joe MD on 04/01/2024 2:43 PM PDT Station ID: [id number]
== END 2024-04-01 14:09 | disposition home or self-care (01) ==
LOC: DI 14:08
PROVIDERS: ATTEND Nurse Practitioner
DX: M85.89 Other specified disorders of bone density and structure, multiple sites (principal); Z78.0 Asymptomatic menopausal state

== ENCOUNTER 2024-06-11 09:19 | Outpatient (CLI) | payer MEDICARE ==
[2024-06-11 12:27] LABS: ESTIMATED AVERAGE GLUCOSE 212 mg/dL (70-100)
== END 2024-06-11 09:20 | disposition home or self-care (01) ==
LOC: LAB.N 09:19
PROVIDERS: ATTEND Nurse Practitioner
DX: E11.8 Type 2 diabetes mellitus with unspecified complications (principal)
CPT/HCPCS: 36415; 83036